=== PATIENT | male | born 1965 | race Caucasian/White ===

== ENCOUNTER 2021-11-02 14:12 | Inpatient (IN) | payer BC ==
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
[2021-11-02] MEDS ORDERED: HYDROmorphone 1 MG/ML 1 ML SYRINGE IVP STA ×2 (14:50→15:54)
[2021-11-02] MEDS ORDERED: ONDANSETRON 4 MG ODT STARTER PACK 2 TAB BTL PO STA (14:50)
[2021-11-02 15:02] LABS: Basophils # (A) 0.1 k/uL (0-0.2); Basophils % (A) 1 %; Eosinophils # (A) 0.1 k/uL (0-0.7); Eosinophils % (A) 1 %; HGB 15.1 gm/dL (13.0-17.5); Lymphocytes # (A) 0.8 k/uL (1.0-4.8); Lymphocytes % (A) 8 %; MCHC 34.3 g/dL (31.0-37.0); MCV 93.4 fL (80.0-100.0); Monocytes # (A) 0.4 k/uL (0-1.0); Monocytes % (A) 4 %; Neutrophils # (A) 9.4 k/uL (1.3-7.7); Neutrophils % (A) 87 %; Platelet Count 197 k/uL (150-450); RBC 4.72 m/uL (4.30-5.90); RDW 13.1 % (11.5-15.5); WBC 10.9 k/uL (3.8-10.6)
[2021-11-02 15:04] LABS: ALT 21 U/L (4-49); AST 36 U/L (17-59); African American GFR (CKD) 76 (>60 ml/min/1.73 sqM); Albumin 3.9 g/dL (3.5-5.0); Alcohol <10 mg/dL; Alkaline Phosphatase 71 U/L (38-126); Anion Gap 8 mmol/L; Blood Urea Nitrogen 12 mg/dL (9-20); Calcium 8.8 mg/dL (8.4-10.2); Carbon Dioxide 24 mmol/L (22-30); Chloride 105 mmol/L (98-107); Glucose 144 mg/dL (74-99); Non-African American GFR(CKD) 66 (>60 ml/min/1.73 sqM); Potassium 3.1 mmol/L (3.5-5.1); Sodium 137 mmol/L (137-145); Total Bilirubin 0.6 mg/dL (0.2-1.3); Total Protein 6.8 g/dL (6.3-8.2)
--- NOTE | 2021-11-02 15:05 | XR ---
EXAMINATION TYPE: XR chest 1V portable DATE OF EXAM: 11/02/2021 COMPARISON: NONE HISTORY: Trauma. Pain TECHNIQUE: FINDINGS: Heart and mediastinum are normal. Lungs are clear. Diaphragm is normal. Bony thorax appears normal. IMPRESSION: Normal chest.
--- NOTE | 2021-11-02 15:05 | XR ---
EXAMINATION TYPE: XR pelvis AP view DATE OF EXAM: 11/02/2021 COMPARISON: NONE HISTORY: Trauma. Pain TECHNIQUE: Single view FINDINGS: Pelvic ring is intact. Proximal femurs and hip joints are intact. Sacroiliac joints are int act. IMPRESSION: No fracture.
[2021-11-02 15:09] LABS: Partial Thromboplastin Time 23.5 sec (22.0-30.0); Prothrombin Time 10.8 sec (9.0-12.0)
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
[2021-11-02] MEDS ORDERED: LORazepam 2 MG/ML INJ IV PRN (16:41)
[2021-11-02] MEDS ORDERED: NALOXONE 0.4 MG/ML 1 ML VIAL IV PRN (16:41)
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
[2021-11-02] MEDS: HYDROmorphone 1 MG/ML 1 ML SYRINGE IVP PRN ×2 (18:28→21:21)
[2021-11-02] MEDS: ONDANSETRON 4 MG/2 ML VIAL IVP PRN (20:19)
[2021-11-02] MEDS: buPROPion SR 150 MG TABLET.ER PO SCH (22:05)
[2021-11-02] MEDS: lisinopriL 20 MG TAB PO SCH (22:06)
[2021-11-02] MEDS: SODIUM CHLORIDE 0.9% 1,000 ML IV SCH (22:06)
[2021-11-02] MEDS: SUCRALFATE 1 GM TAB PO PRN (22:25)
[2021-11-02] MEDS: traZODone HCL 100 MG TAB PO SCH (22:51)
[2021-11-03] MEDS: HYDROmorphone 1 MG/ML 1 ML SYRINGE IVP PRN ×4 (03:02→23:08)
[2021-11-03] MEDS ORDERED: HYDROmorphone 1 MG/ML 1 ML SYRINGE ONE (09:00)
[2021-11-03] MEDS ORDERED: lisinopriL 20 MG TAB ONE (09:00)
[2021-11-03] MEDS ORDERED: PANTOPRAZOLE 40 MG/10 ML VIAL ONE (09:00)
[2021-11-03] MEDS ORDERED: buPROPion SR 150 MG TABLET.ER PO ONE (09:00)
[2021-11-03] MEDS ORDERED: PANTOPRAZOLE 40 MG/10 ML VIAL IV SCH (09:00)
[2021-11-03] MEDS: SODIUM CHLORIDE 0.9% 1,000 ML IV SCH ×2 (12:31→19:53)
[2021-11-03] MEDS: PANTOPRAZOLE 40 MG/10 ML VIAL IVP SCH ×2 (12:32→21:24)
[2021-11-03] MEDS: buPROPion SR 150 MG TABLET.ER PO SCH ×2 (12:32→21:24)
[2021-11-03] MEDS: lisinopriL 20 MG TAB PO SCH ×2 (12:32→21:24)
[2021-11-03] MEDS: HYDROcodone/APAP 5-325MG 1 EACH TAB PO PRN (12:45)
[2021-11-03] MEDS ORDERED: HYDROcodone/APAP 5-325MG 1 EACH TAB ONE (12:45)
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
[2021-11-03 14:16] LABS: Appearance,Urine Clear (Clear); Bilirubin,Urine Negative (Negative); Blood,Urine Negative (Negative); Color,Urine Yellow; Glucose,Urine (UA) Negative (Negative); Ketones,Urine Negative (Negative); Leukocyte Esterase,Urine Negative (Negative); Mucus,Urine Moderate /hpf; Nitrite,Urine Negative (Negative); Protein,Urine 1+ (Negative); RBC,Urine <1 /hpf (0-5); Specific Gravity,Urine 1.037 (1.001-1.035); Squamous Epithelial Cell,Urine <1 /hpf (0-4); Urobilinogen,Urine <2.0 mg/dL (<2.0); WBC,Urine 7 /hpf (0-5)
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
[2021-11-03 15:50] LABS: Amphetamine Screen,Urine Not Detected (NotDetected); Barbiturate Screen,Urine Not Detected (NotDetected); Benzodiazepines Screen,Urine Not Detected (NotDetected); Cocaine Screen,Urine Not Detected (NotDetected); Methadone Screen, Urine Not Detected (NotDetected); Opiate Screen,Urine Detected (NotDetected); Oxycodone Screen, Urine Not Detected (NotDetected); Phencyclidine Screen,Urine Not Detected (NotDetected); Tricyclic Antidepressant,Urine Not Detected (NotDetected); Urn Cannabinoid Scrn Not Detected (NotDetected)
[2021-11-03] MEDS: traZODone HCL 100 MG TAB PO SCH (23:09)
[2021-11-04] MEDS: HYDROcodone/APAP 5-325MG 1 EACH TAB PO PRN ×5 (00:36→22:36)
[2021-11-04] MEDS: HYDROmorphone 1 MG/ML 1 ML SYRINGE IVP PRN ×6 (07:35→23:36)
[2021-11-04] MEDS: lisinopriL 20 MG TAB PO SCH ×2 (07:37→22:36)
[2021-11-04] MEDS: buPROPion SR 150 MG TABLET.ER PO SCH ×2 (07:37→22:36)
[2021-11-04] MEDS: PANTOPRAZOLE 40 MG/10 ML VIAL IVP SCH ×2 (07:37→20:31)
[2021-11-04] MEDS: SODIUM CHLORIDE 0.9% 1,000 ML IV SCH ×2 (07:39→23:41)
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
[2021-11-04] MEDS: traZODone HCL 100 MG TAB PO SCH (22:36)
[2021-11-05] MEDS ORDERED: TRANEXAMIC ACID IN NACL,ISO-OS 1,000 MG in SALINE 1 100ML.BAG IVPB PRN ×2 (05:00)
[2021-11-05] MEDS: HYDROcodone/APAP 5-325MG 1 EACH TAB PO PRN ×2 (07:17→13:08)
[2021-11-05] MEDS: buPROPion SR 150 MG TABLET.ER PO SCH ×2 (07:17→23:56)
[2021-11-05] MEDS: HYDROmorphone 1 MG/ML 1 ML SYRINGE IVP PRN ×4 (07:17→23:55)
[2021-11-05] MEDS: PANTOPRAZOLE 40 MG/10 ML VIAL IVP SCH ×2 (07:17→23:56)
[2021-11-05] MEDS: lisinopriL 20 MG TAB PO SCH ×2 (07:17→23:56)
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
[2021-11-05 09:46] LABS: African American GFR (CKD) >90 (>60 ml/min/1.73 sqM); Anion Gap 4 mmol/L; Blood Urea Nitrogen 8 mg/dL (9-20); Calcium 7.9 mg/dL (8.4-10.2); Carbon Dioxide 29 mmol/L (22-30); Chloride 107 mmol/L (98-107); Glucose 88 mg/dL (74-99); Non-African American GFR(CKD) >90 (>60 ml/min/1.73 sqM); Potassium 3.7 mmol/L (3.5-5.1); Sodium 140 mmol/L (137-145)
[2021-11-05] MEDS ORDERED: HYDROmorphone 0.5 MG/0.5 ML SYRINGE IVP ONE ×3 (10:20→22:20)
[2021-11-05] MEDS: SODIUM CHLORIDE 0.9% 1,000 ML IV SCH (10:57)
--- NOTE | 2021-11-05 14:36 | P.PN ---
Progress Note - Text Progress Note Date: 11/05/21 Spine Surgery Risk Review Cristiano Wall is a 56-year-old male presenting for evaluation of of your low back pain. It was my pleasure to have seen and examined Cristiano Wall. In our visit today we have had a chance to go over subjective complaints, physical examination findings and treatments including the natural course history without intervention and various interventional options. The patients imaging demonstrates L2 split fracture with displacement. On physical exam, Cristiano Wall demonstrates severe pain with ambulation or movement difficulty with motion secondary to pain as well as debility. I have explained to the patient that as their condition progresses it will cause further neurological deficits and eventual paralysis. Based on the patients imaging, physical exam, and the rapid progression and disabling nature of their symptoms, at this time I recommend surgery in the form or a: T12 to L4 stabilization. I discussed the risk and benefits of this procedure at length with Cristiano Wall. The patient agreed to considered pursuing the procedure abovementioned. Prior to surgery, she should follow up with her PCP (Cardio, ID, IM etc) for clearance. Questions were invited and answered, and the patient wishes to proceed as outlined below. Currently, I am recommendin. T12 to L4 stabilization for L2 fracture 2. Follow up with PCP for surgical clearance 3. Review of surgical risks and benefits as well as an educational packet on the proposed surgical procedure. Risks: All surgical procedures come with inherent risks, including those related to positioning, anesthesia, intraoperative findings, and postoperative complications. It is important to understand that surgery does not come with any guarantee of a successful outcome as complications and adverse events are a lways possible. The patient was given a handout in office today discussing the surgical procedure and risks associated with the intervention, both of which were discussed with the patient. These risks include but are not limited to the following: * Experiencing same, different or even worse symptoms in back, neck, arms, or legs compared to before surgery. * Requiring further surgery or other forms of treatment presently or at some time in the future at same or other levels of the intended spine surgery. * On an extreme but fortunately relatively rare basis severe complication such as blindness, stroke, heart attack, temporary and/or permanent nerve injury, paralysis, coma, or may occur, sometimes without known explanation. * Surgical complications may include but are not limited to risk of infection, fluid accumulation in the surgical dissection site, including a seroma or hematoma, that requires additional surgery, wound drainage, bleeding, new numbness or weakness, vision changes/loss, spinal fluid leakage, non-healing and/or infected incision, headaches, difficulty or inability to swallow, hoarseness, hemopneumothorax, pneumothorax, impotence, retrograde ejaculation, vaginal dryness; injury to nerves, spinal cord, blood vessels, lymphatics or other vital organs (i.e., bowel injury, injury to the great vessels); heterotopic bone formation; complications related to the hardware such as screws, rods, cages including misplaced hardware, device failure, instrumentation at the wrong spine level, hardware fracture/breakage, or hardware loosening; vertebral failure of the spinal column above or below the newly placed hardware; retained surgical instrumentations or devices and the need for further surgery. * Medical risks of the planned spine surgery include but are not limited to generalized Infections to the whole body or local areas outside of the surgical site (sepsis), heart attack, bleeding, anaphylaxis, meningitis, seizure, epilepsy, hearing loss, burn del real, laceration of the head or other areas of the body, bruising, hypersensitivity of the skin, bladder over distension; allergic reaction; shoulder injury related to positioning; fat, blood and air clots to other areas of the body like heart, lungs, brain; failure of internal organs such as lungs, kidneys, liver and excessive bleeding. If blood transfusions are necessary, note that transfusions may cause intolerance reactions such as anaphylaxis or other complex reactions. * Despite best efforts, the results of spine surgery might not heal in terms of bone, soft tissues such as skin, fascia, ligaments, and joints. Additionally, in order to achieve best possible results, spine surgery may be carried out beyond the initially planned levels and involve decompression, fusion including insertion of hardware at levels other than the original intended area of surgical interest change some portions of the procedure in order to ensure the best possible outcomes. * With spine surgery and spinal fusion, there are different off label uses of instrumentation (devices, implants and hardware) as well as biological substances (bone morphogenic proteins, demineralized bone matrix) as well as using extra bone from allograft sources (i.e. cadaver bone) or autograft (iliac crest bone, ribs, or the spine itself). The patient has been given information about these practices and their inherent risks and benefits. The patient has had a chance to review all the listed information, has been given print outs detailing this information, and has had all his/her questions answered to their satisfaction. It was my pleasure to have seen and examined Cristiano Wall. In our visit today we have had a chance to go over my understanding of our patient's current condition, the natural course history without intervention and various interventional options. Questions were invited and answered, and the patient wishes to proceed as outlined above. I have seen and examined the patient for 25 minutes and we have spent more than 50% of the time in repeat and detailed counseling about the patient's condition, its natural course history with out and as much as can be predicted with surgery and re-review of various surgical treatment options. In conclusion, Cristiano Wall and requested we proceed with the above suggested surgery and are willing to accept risks and limitations of the suggested surgery as nature of the disease process and our best attempts at treatment for the condition. Thank you again for allowing us to be part of your patient's care. Please don't hesitate to contact me if you have any further questions. Signed and authenticated by: Ulisses Santacruz [facility] [address] [address]
[2021-11-05] MEDS ORDERED: LACTATED RINGERS 1,000 ML IV ONE ×3 (17:20→21:20)
[2021-11-05] MEDS ORDERED: SUCCINYLCHOLINE CHLORIDE 100 MG/5 ML SYR IV ONE (18:56)
[2021-11-05] MEDS ORDERED: GLYCOPYRROLATE 0.2 MG/ML 2 ML VIAL ONE (18:56)
[2021-11-05] MEDS ORDERED: ROCURONIUM 10 MG/ML (5 ML VIAL) IV ONE (18:56)
[2021-11-05] MEDS ORDERED: ONDANSETRON 4 MG/2 ML VIAL ONE (18:56)
[2021-11-05] MEDS ORDERED: LIDOCAINE 2% INJ 20 MG/ML (2 ML VIAL) ONE (18:56)
[2021-11-05] MEDS ORDERED: fentaNYL (PF) 50 MCG/ML 2 ML AMP ONE (18:56)
[2021-11-05] MEDS ORDERED: DEXAMETHASONE SOD PHOSPHATE 10 MG/ML 1 ML VIAL ONE (18:56)
[2021-11-05] MEDS ORDERED: MIDAZOLAM 2 MG/2 ML VIAL ONE (18:56)
[2021-11-05] MEDS ORDERED: NEOSTIGMINE 1 MG/ML 10 ML VIAL ONE (18:56)
[2021-11-05] MEDS ORDERED: TRANEXAMIC ACID IN NACL,ISO-OS 1,000 MG/100 ML BAG ONE (18:56)
[2021-11-05] MEDS ORDERED: HYDROmorphone (PF) 1 MG/ML ONE (18:56)
[2021-11-05] MEDS ORDERED: PROPOFOL 10 MG/ML 20 ML VIAL IV ONE (18:56)
[2021-11-05] MEDS ORDERED: TRANEXAMIC ACID IN NACL,ISO-OS 1,000 MG in SALINE 1 100ML.BAG IVPB ONE (19:51)
[2021-11-05] MEDS ORDERED: MAGNESIUM HYDROXIDE 2,400 MG/10 ML CUP PO PRN (21:39)
[2021-11-05] MEDS ORDERED: MAG HYDROX/AL HYDROX/SIMETH 30 ML CUP PO PRN (21:39)
[2021-11-05] MEDS ORDERED: NA PHOS,M-B/NA PHOS,DI-BA 133 ML ENEMA RECTAL PRN (21:39)
[2021-11-05] MEDS ORDERED: HYDROcodone/APAP 10-325MG 1 EACH TAB PO PRN (21:39)
[2021-11-05] MEDS ORDERED: bisacodyL 10 MG SUPP RECTAL PRN (22:00)
[2021-11-05] MEDS ORDERED: SENNOSIDES-DOCUSATE SODIUM 1 EACH TAB PO PRN (22:00)
[2021-11-05] MEDS: traZODone HCL 100 MG TAB PO SCH (23:21)
[2021-11-06] MEDS: CYCLOBENZAPRINE 10 MG TAB PO PRN ×2 (00:21→08:16)
[2021-11-06] MEDS: SODIUM CHLORIDE 0.9% 1,000 ML IV SCH ×2 (02:10→18:09)
[2021-11-06] MEDS: HYDROmorphone 1 MG/ML 1 ML SYRINGE IVP PRN ×4 (04:54→23:40)
--- NOTE | 2021-11-06 06:19 | FL ---
EXAMINATION TYPE: FL guidance operating room, XR lumbar spine 2 or 3V DATE OF EXAM: 11/05/2021 CLINICAL HISTORY: L2 fracture. TECHNIQUE: Fluoroscopy. Intraoperative 2 views lumbar spine. COMPARISON: MRI lumbar spine November 04, 2021. CT chest abdomen and pelvis November 02, 2021.. FINDINGS: Fluoroscopic guidance was provided during T12-L4 fusion procedure performed by Dr. Goodman brown. A total of 1.22 minutes of fluoroscopic time was utilized during the procedure and 6 spot image s was acquired. Images obtained are not sent to PACS for official interpretation. IMPRESSION: As Above.
[2021-11-06] MEDS ORDERED: LIDOCAINE 1% (10MG/ML) FOR IV START INTRADERMA PRN (07:06)
[2021-11-06] MEDS ORDERED: HYDROcodone/APAP 7.5-325MG 1 EACH TAB PO PRN (07:06)
[2021-11-06] MEDS ORDERED: ONDANSETRON 4 MG/2 ML VIAL IVP ONE (07:06)
[2021-11-06] MEDS ORDERED: DEXAMETHASONE SOD PHOSPHATE 4 MG/ML 1 ML VIAL IV ONE (07:06)
[2021-11-06] MEDS ORDERED: HYDROmorphone 0.5 MG/0.5 ML SYRINGE IVP PRN (07:06)
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
[2021-11-06] MEDS: buPROPion SR 150 MG TABLET.ER PO SCH ×2 (09:10→21:14)
[2021-11-06] MEDS: oxyCODONE-APAP 7.5-325MG 1 EACH TAB PO PRN ×3 (09:10→21:14)
[2021-11-06] MEDS: lisinopriL 20 MG TAB PO SCH ×2 (09:10→21:14)
[2021-11-06] MEDS: PANTOPRAZOLE 40 MG/10 ML VIAL IVP SCH ×2 (09:15→21:14)
[2021-11-06] MEDS: LACTATED RINGERS 1,000 ML IV SCH (09:15)
[2021-11-06 10:07] LABS: African American GFR (CKD) >90 (>60 ml/min/1.73 sqM); Anion Gap 6 mmol/L; Blood Urea Nitrogen 8 mg/dL (9-20); Carbon Dioxide 23 mmol/L (22-30); Chloride 107 mmol/L (98-107); Glucose 146 mg/dL (74-99); Non-African American GFR(CKD) >90 (>60 ml/min/1.73 sqM); Sodium 136 mmol/L (137-145)
[2021-11-06 10:10] LABS: Potassium 4.1 mmol/L (3.5-5.1)
[2021-11-06 10:14] LABS: Basophils % (A) 0 %; Eosinophils % (A) 0 %; HCT 39.1 % (39.0-53.0); HGB 13.2 gm/dL (13.0-17.5); Lymphocytes # (A) 0.6 k/uL (1.0-4.8); Lymphocytes % (A) 9 %; MCH 32.8 pg (25.0-35.0); MCHC 33.7 g/dL (31.0-37.0); MCV 97.5 fL (80.0-100.0); Mean Platelet Volume 7.8; Monocytes # (A) 0.3 k/uL (0-1.0); Monocytes % (A) 5 %; Neutrophils # (A) 5.3 k/uL (1.3-7.7); Neutrophils % (A) 84 %; Platelet Count 184 k/uL (150-450); RBC 4.01 m/uL (4.30-5.90); RDW 12.9 % (11.5-15.5); WBC 6.3 k/uL (3.8-10.6)
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
[2021-11-06] MEDS: HYDROmorphone 0.5 MG/0.5 ML SYRINGE IVP PRN ×2 (12:45→16:04)
[2021-11-06] MEDS: traZODone HCL 100 MG TAB PO SCH (23:40)
[2021-11-07] MEDS: SODIUM CHLORIDE 0.9% 1,000 ML IV SCH ×2 (04:37→18:07)
[2021-11-07] MEDS: HYDROmorphone 1 MG/ML 1 ML SYRINGE IVP PRN ×4 (05:50→23:26)
[2021-11-07] MEDS: buPROPion SR 150 MG TABLET.ER PO SCH ×2 (07:53→19:51)
[2021-11-07] MEDS: lisinopriL 20 MG TAB PO SCH ×2 (07:53→19:48)
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
[2021-11-07] MEDS: HYDROmorphone 0.5 MG/0.5 ML SYRINGE IVP PRN (09:53)
[2021-11-07] MEDS: oxyCODONE-APAP 7.5-325MG 1 EACH TAB PO PRN ×3 (11:04→19:47)
[2021-11-07] MEDS: LACTATED RINGERS 1,000 ML IV SCH (12:40)
[2021-11-07] MEDS: PANTOPRAZOLE 40 MG/10 ML VIAL IVP SCH ×2 (12:43→19:48)
[2021-11-07 13:46] VITALS: BMI 28.8
[2021-11-07] MEDS: CYCLOBENZAPRINE 10 MG TAB PO PRN (16:12)
[2021-11-07] MEDS: traZODone HCL 100 MG TAB PO SCH (23:27)
[2021-11-08] MEDS: oxyCODONE-APAP 7.5-325MG 1 EACH TAB PO PRN ×5 (00:33→19:21)
[2021-11-08] MEDS: SODIUM CHLORIDE 0.9% 1,000 ML IV SCH (03:17)
[2021-11-08] MEDS: HYDROmorphone 0.5 MG/0.5 ML SYRINGE IVP PRN ×2 (04:39→16:38)
[2021-11-08] MEDS: CYCLOBENZAPRINE 10 MG TAB PO PRN ×3 (05:58→21:46)
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
[2021-11-08] MEDS: ONDANSETRON 4 MG/2 ML VIAL IVP PRN (09:26)
[2021-11-08] MEDS: lisinopriL 20 MG TAB PO SCH ×2 (09:28→21:47)
[2021-11-08] MEDS: buPROPion SR 150 MG TABLET.ER PO SCH ×2 (09:28→21:46)
[2021-11-08] MEDS: PANTOPRAZOLE 40 MG/10 ML VIAL IVP SCH ×2 (09:28→21:47)
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
[2021-11-08] MEDS: HYDROmorphone 1 MG/ML 1 ML SYRINGE IVP PRN (11:37)
[2021-11-08] MEDS: LACTATED RINGERS 1,000 ML IV SCH (13:03)
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
[2021-11-08] MEDS: traZODone HCL 100 MG TAB PO SCH (21:47)
[2021-11-09] MEDS: SODIUM CHLORIDE 0.9% 1,000 ML IV SCH ×3 (00:28→22:02)
[2021-11-09] MEDS: HYDROmorphone 0.5 MG/0.5 ML SYRINGE IVP PRN ×3 (01:45→18:36)
[2021-11-09] MEDS: ACETAMINOPHEN TAB 325 MG TAB PO PRN (01:46)
[2021-11-09] MEDS: SUCRALFATE 1 GM TAB PO PRN (01:50)
[2021-11-09] MEDS: oxyCODONE-APAP 7.5-325MG 1 EACH TAB PO PRN ×4 (08:16→22:02)
[2021-11-09] MEDS: PANTOPRAZOLE 40 MG/10 ML VIAL IVP SCH ×2 (08:16→22:02)
[2021-11-09] MEDS: lisinopriL 20 MG TAB PO SCH ×2 (08:17→22:01)
[2021-11-09] MEDS: CYCLOBENZAPRINE 10 MG TAB PO PRN ×2 (08:17→16:38)
[2021-11-09] MEDS: LACTATED RINGERS 1,000 ML IV SCH (08:25)
[2021-11-09] MEDS: buPROPion SR 150 MG TABLET.ER PO SCH ×2 (09:40→22:02)
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
[2021-11-09] MEDS: traZODone HCL 100 MG TAB PO SCH (22:01)
[2021-11-10] MEDS: CYCLOBENZAPRINE 10 MG TAB PO PRN ×2 (00:19→07:16)
[2021-11-10] MEDS: HYDROmorphone 0.5 MG/0.5 ML SYRINGE IVP PRN (07:16)
[2021-11-10 07:27] VITALS: BP 165/99; PULSE 67; RESP 17; TEMP 97.9
[2021-11-10] MEDS: lisinopriL 20 MG TAB PO SCH (07:53)
[2021-11-10] MEDS: buPROPion SR 150 MG TABLET.ER PO SCH (07:53)
[2021-11-10] MEDS: PANTOPRAZOLE 40 MG/10 ML VIAL IVP SCH (07:54)
[2021-11-10] MEDS: ACETAMINOPHEN TAB 325 MG TAB PO PRN (07:56)
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
--- NOTE | 2021-11-10 08:10 | P.DS ---
Providers Date of admission: 11/02/21 16:41 Expected date of discharge: 11/10/21 Attending physician: Ulisses Corona DO Consults: 11/02/21 16:43 Consult Physician Routine Consulting Provider: Андрей Lizama Reason/Comments: Medical management Do you want consulting provider notified?: Yes Primary care physician: Jah Davidson Hospital Course: Hospital Course: The patient was evaluated preoperatively and found to have the diagnosis of L2 fracture. They underwent appropriate preoperative care and were willing to undergo the intended procedure. They underwent a successful T12 to L4 MIS stabilization, were recovered appropriately and sent to the floor. While on the floor they worked with physical therapy, occupational therapy and nursing to enhance their recovery experience. Their pain was well controlled through their stay and they were started on appropriate medications, DVT ppx modalities, activity and dietary needs. Daily labs were monitored closely, and transfusions were only used when necessary. Medicine as well as other consulting services have made their input and have helped with our team approach and multidisciplinary care. PT milestones have been met and passed and they have made the recommendation of home with home care for this patient and treating providers agree with this care path. The patient will be discharged home with appropriate medications, instructions and follow-up information and in stable condition. Patient Condition at Discharge: Good Plan - Discharge Summary Discharge Rx Participant: No New Discharge Prescriptions: New oxyCODONE HCL/ACETAMINOPHEN [Percocet 7.5-325 mg] 1 tab PO Q4HR PRN #56 tab PRN Reason: Pain cefaDROXiL [Duricef] 500 mg PO Q12HR 5 Days #10 cap Cyclobenzaprine [Flexeril] 5 mg PO TID #90 tablet No Action traZODone HCL 300 mg PO HS buPROPion SR [Wellbutrin SR] 150 mg PO BID Quinapril HCl [Accupril] 20 mg PO BID Discharge Medication List Quinapril HCl [Accupril] 20 mg PO BID 11/02/21 [History] buPROPion SR [Wellbutrin SR] 150 mg PO BID 11/02/21 [History] traZODone HCL 300 mg PO HS 11/02/21 [History] Cyclobenzaprine [Flexeril] 5 mg PO TID #90 tablet 11/10/21 [Rx] cefaDROXiL [Duricef] 500 mg PO Q12HR 5 Days #10 cap 05/02/22 [Rx] oxyCODONE HCL/ACETAMINOPHEN [Percocet 7.5-325 mg] 1 tab PO Q4HR PRN #56 tab 11/10/21 [Rx] Follow up Appointment(s)/Referral(s): Jah Davidson MD [Primary Care Provider] - As Needed [facility], [NON-STAFF] - As Needed Ulisses Corona DO [Doctor of Osteopathic Medicine] - 2 Weeks Activity/Diet/Wound Care/Special Instructions: Spine Discharge and Recovery Instructions Date of Surgery: 11/05/2021 Diagnosis: L2 fracture Procedure: T12 to L4 MIS stabilization Medications: See medication list All medication refills should be obtained through your primary care doctor or your clinic spine surgeon. Please discuss prescription refills at your follow up appointment. Do not call the hospital for medication refills. Dressing: Leave your dressing in place for a total of 5 days post operatively. Then you may remove your dressing and leave open to air. Keep the area clean and if not able to keep area clean, then cover with sterile gauze and tape. Showering: You may shower 3 days after your procedure allowing soap and water to run over incision. Do not scrub. Do not soak. Blot dry. Follow up: Please confirm a follow up appointment with your surgeon 3 weeks post operatively. Please make an appointment to follow up with your PCP in 1-2 weeks after surgery for evaluation 3 phase, 3-week plan POST OP WEEKS 1-3 1. Lifting/carrying/pushing/pulling limited to less than 5 pounds. 2. Do not sit for longer than 15 minutes at one time. Get up and walk around. Prolonged sitting is NOT advised. If you lay down, see if you can tolerate laying down on you front (belly side) 3. Walk for periods of 15 minutes = 1 mile but no longer; do it multiple times times each day. 4. Ice your low back after activity. POST OP WEEKS 3-6 1. Lifting limited to less than 20 pounds. 2. Do not sit for longer than 30 minutes at a time. Frequently change positions. Use a sit-to stand workstation or take frequent breaks from sitting if you have returned to work. 3. Walk for 30 minutes each day. If possible, do these three or more times a day POST OP WEEKS 6+ At your 6-week appointment we will give you a physical therapy referral to focus on a core stabilization and strengthening program. You should also work on leg & buttock strengthening, hamstring & quadriceps stretching, and continue a low impact aerobic activity program such as swimming, walking, or riding a stationary bicycle. During the initial 6 weeks after your surgery, you are at the highest risk of re-injuring your spine. You should generally avoid BLTs (bending, lifting and twisting combination motions) and follow the above guidelines to reduce the chance of reinjury. You can anticipate post op appointments in our office at approximately 3 weeks and 6 weeks after your surgery. INCISION CARE: If your incision is not draining you do NOT need to cover it with a dressing. Keep your incision clean, dry and intact. In most cases, we apply skin glue, kalpana or sutures to the incision at the time of surgery. This will be like a crust or have the appearance of a scab and will fall off in time on its own. The stitches or kalpana need to be removed at 3 weeks post op appointment. You may begin to shower 3 days after surgery (this allows the glue to león well). However, please avoid scrubbing the incision site or peeling off any of the skin glue. This will ensure optimal healing of your incision. Also, during this time avoid soaking the incision area in water - this includes swimming pools, hot tubs or baths. No ointments, lotions or oils on the incision until your surgeon allows. Leave kalpana, sutures or glue in place. Neurological dysfunction that comes on suddenly can also be a sign of a stroke. Below some common symptoms of a stroke are listed: B - balance difficulty such as sudden onset walking or leaning to one side - NEW E - eye problem such as sudden double vision or trouble seeing on one side - NEW F - Facial weakness or numbness on one side - NEW A - Arm or leg weakness or numbness on one side - NEW S - Slurred speech or difficulty with word finding - NEW T - Time is BRAIN! Call 911 as soon as you recognize these symptoms Diet: Consume a regular diet rich in vegetables and lean protein such as chicken or fish. You should consume in a ratio of approximately 20% fats|40% carbohydrates|40%protein. Vegetables, sweet potatoes, brown rice or quinoa are examples of good carbohydrates. Chips, white bread, cookies and sweets/sugar are examples of bad carbohydrates. Limit your bad carbs, go wild with good carbs. "Life's Simple 7" Guidelines as per [place] [employer] These will help you reclaim your life after surgery and mortician helper in your recovery, keeping in mind your restrictions. (1) Get Active. Physical activity can help people lose weight, control high blood pressure and cholesterol, feel emotionally better, and sleep better. (2) Control Cholesterol. Avoid a diet high in saturated fat, trans fat, & cholesterol. Limit whole milk & cream, ice cream, butter, egg yolks, processed meats (like sausage and hot dogs), and fatty meats. Choose healthy foods that are low in saturated fat, trans fat and cholesterol which include: Fruits and vegetables, fiber rich grain products (like whole grain pasta and brown rice), lean meat such as chicken, fish, nuts, seeds, and legumes. (3) Eat Better. Eat small portions. Shop at the grocery with a list and do not stray from it. Tips for a healthy diet include: Limit sodium intake to less than 1500mg daily, avoid prepackaged, processed, and fast foods, choose a diet rich in fruits, vegetables, and whole grain, high fiber foods, and limit saturated & cholesterol in your diet. (4) Manage Blood Pressure. If you have high blood pressure, you should have a cuff at home so that you can check your blood pressure regularly. Be sure you have a good cuff. An arm one is generally better than a wrist one. Bring the cuff to a doctor's appointment to validate that the measurements that your cuff are taking are accurate. Take your blood pressure twice daily when you are sitting down and relaxing. Record the numbers in a log and bring this log with you to your doctors' appointments. (5) Lose Weight if your BMI is above 25. A healthy BMI is between 19-25. To calculate Your BMI, you may use a Standard BMI Calculator on the NIH BMI website: <www.nhlbi.nih.gov/guidelines/obesity/BMI/bmicalc.htm>. Weigh oneself daily. If you are overweight, set a goal to lose weight. A pound a week loss if needed is a good target. (6) Reduce Blood Sugar. Limit foods and liquids with "added sugars." (Added sugars include sucrose, fructose, glucose, maltose, dextrose, high fructose corn syrup, corn syrup, concentrated fruit juice and honey). (7) Stop Smoking. If you smoke, quitting smoking is one of the best things that you can do for your health. Smoking increases your risk of heart attack, stroke, and peripheral vascular disease, which is a build-up of plaque in your arteries. Please discard all the cigarettes and lighters in your house. Have a plan for what you will do when you have the urge to smoke. Direct and second- hand smoke shortens your life as well as the lives of your family, friends and others around you. For your health and the health of those around you, please consider quitting! Proper Bending Body Mechanics: Maintain a wide stance with one foot slightly in front of the other. Keep your back straight. Bend utilizing the strength in your hips and knees. Do not bend at the waist. Maintain the lifted object at your waist-level close to your body. Avoid lifting weight that causes immediately pain or pain anywhere in the body afterwards. Smoking/Nicotine If there was ever one thing that you could do to increase your overall health, decrease your risk of cardiovascular problems by about 39% the second you make the choice, it is to STOP SMOKING. Your body's most instant gratification is the second you stop smoking. We have all heard the studies, read the articles but it is true, smoking is extremely bad for your overall health, and moreover it is detrimental to your bone health. Nicotine, IN ANY FORM, kills bone cells, prevents your body from healing fractures, and significantly prolongs healing after surgery. In spine surgery specifically, it increases your risk of not healing your bones to create a fusion and increases your risk of having a revision surgery due to this up to 60%. I know it is hard. I know it feels impossible. But there are ways. Take control of your life. We are here to help you through it. And when you are ready, ask us and we can direct you to help if you desire. Use the START Plan to Quit Smoking (please visit the Helpguide.org website listed below for more information): S = Set a quit date. Choose a date within the next 2 weeks, so you have enough time to prepare without losing your motivation to quit. If you mainly smoke at work, quit on the weekend, so you have a few days to adjust to the change. T = Tell family, friends, and co-workers that you plan to quit. Let your friends and family in on your plan to quit smoking and tell them you need their support and encouragement to stop. Look for a quit alan who wants to stop smoking as well. You can help each other get through the rough times. A = Anticipate and plan for the challenges you'll face while quitting. Most people who begin smoking again do so within the first 3 months. You can help yourself make it through by preparing ahead for common challenges, such as nicotine withdrawal and cigarette cravings. R = Remove cigarettes and other tobacco products from your home, car, and work. Throw away all your cigarettes (no emergency pack!), lighters, ashtrays, and matches. Wash your clothes and freshen up anything that smells like smoke. Shampoo your car, clean your drapes and carpet, and steam your furniture. T = Talk to your doctor about getting help to quit. Your doctor can prescribe medication to help with withdrawal and suggest other alternatives. If you can't see a doctor, you can get many products over the counter at your local pharmacy or grocery store, including the nicotine patch, nicotine lozenges, and nicotine gum. Resources for Quitting Smoking: <https://www.[place].gov/documents/[facility]/Quit_Tobacco_Resources_for_patients_313 480_7.pdf> Supplementation: Take recommended dosages of Vitamin D and Calcium to help fortify your bones and help them to heal. See your health maintenance packet for dosages and recommended levels. DVT/VTE prophylaxis: You will be given compression stockings from the hospital. Wear these daily for the first two weeks after surgery. You may take them off at night. You may be prescribed a medication to help thin your blood. Take this as directed. If you are not prescribed this medication, early and frequent ambulation has been shown to be the best prophylaxis to deep vein thrombosis and sequelae related to this event. Discharge Disposition: HOME WITH HOME HEALTH SERVICES
[2021-11-10] MEDS: LACTATED RINGERS 1,000 ML IV SCH (09:31)
[2021-11-10] MEDS: oxyCODONE-APAP 7.5-325MG 1 EACH TAB PO PRN (12:49)
== END 2021-11-10 16:53 | disposition home health service (06) | DRG 519 ==
LOC: EC 14:12 → 5NMEDONC 16:41 → 4SSUR 19:50
PROVIDERS: ADMIT Orthopaedic Surgery; ATTEND Orthopaedic Surgery
PROC: 0QS004Z Reposition Lumbar Vertebra with Internal Fixation Device, Open Approach (ICD-10-PCS; principal; 2021-11-05 07:30)
PROC: 4A1104G Monitoring of Peripheral Nervous Electrical Activity, Intraoperative, Open Approach (ICD-10-PCS; principal; 2021-11-05 07:30)
PROC: 3E0V0GB Introduction of Recombinant Bone Morphogenetic Protein into Bones, Open Approach (ICD-10-PCS; principal; 2021-11-05 07:30)
DX: S32.021A Stable burst fracture of second lumbar vertebra, initial encounter for closed fracture (principal); K51.90 Ulcerative colitis, unspecified, without complications; Q21.1 Atrial septal defect; Z93.2 Ileostomy status; S30.0XXA Contusion of lower back and pelvis, initial encounter; G89.11 Acute pain due to trauma; I10 Essential (primary) hypertension; F41.9 Anxiety disorder, unspecified; Z79.899 Other long term (current) drug therapy; Z86.73 Personal history of transient ischemic attack (TIA), and cerebral infarction without residual deficits; Z90.49 Acquired absence of other specified parts of digestive tract; V86.56XA Driver of dirt bike or motor/cross bike injured in nontraffic accident, initial encounter; Y92.838 Other recreation area as the place of occurrence of the external cause
CPT/HCPCS: 36415; 70450; 71045; 71260; 72100; 72125; 72131; 72148; 72170; 74177; 80048; 80053; 80306; 80320; 81001; 84484; 85025; 85610; 85730; 86850; 86870; 86880; 86900; 86901; 86902; 93005; 96374; 96376; 99291

== ENCOUNTER 2022-02-12 07:41 | Inpatient (IN) | payer BC ==
[2022-02-10 13:58] VITALS: BMI 27.3
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
[~2022-02-12 07:41] MED LIST: Pre Op ABX Message 1 EACH MISC MISCELLANE ONE; VANCOMYCIN 1,250 MG in SODIUM CHLORIDE 0.9% 250 ML IVPB PRN
[2022-02-12] MEDS ORDERED: ONDANSETRON 4 MG/2 ML VIAL ONE (08:08)
[2022-02-12] MEDS ORDERED: VANCOMYCIN IV PER PHARMACY 1 EACH MISC MISCELLANE SCH (08:15)
--- NOTE | 2022-02-12 08:24 | P.PN ---
Progress Note - Text Progress Note Date: 02/12/22 History and Physical UPDATE I have seen and examined the patient and reviewed the history and physical. There appear to be no significant changes in the patient's current medical status as outlined in the current History and Physical. We discussed staying in hospital for IVABX vs going home. Pt would like to go home. We will discuss after procedure as well.
[2022-02-12] MEDS ORDERED: ONDANSETRON 4 MG/2 ML VIAL IVP ONE (08:28)
[2022-02-12] MEDS ORDERED: DEXAMETHASONE SOD PHOSPHATE 4 MG/ML 1 ML VIAL IVP ONE (08:28)
[2022-02-12] MEDS ORDERED: LACTATED RINGERS 1,000 ML IV ONE (08:28)
[2022-02-12] MEDS ORDERED: MIDAZOLAM 2 MG/2 ML VIAL IVP ONE (08:32)
[2022-02-12 08:43] LABS: Basophils # (A) 0.1 k/uL (0-0.2); Basophils % (A) 1 %; Eosinophils # (A) 0.3 k/uL (0-0.7); Eosinophils % (A) 4 %; HCT 42.1 % (39.0-53.0); HGB 13.7 gm/dL (13.0-17.5); Lymphocytes # (A) 1.4 k/uL (1.0-4.8); Lymphocytes % (A) 17 %; MCH 29.2 pg (25.0-35.0); MCHC 32.5 g/dL (31.0-37.0); MCV 89.8 fL (80.0-100.0); Mean Platelet Volume 7.5; Monocytes # (A) 0.4 k/uL (0-1.0); Monocytes % (A) 5 %; Neutrophils # (A) 5.9 k/uL (1.3-7.7); Neutrophils % (A) 73 %; Platelet Count 326 k/uL (150-450); RBC 4.68 m/uL (4.30-5.90); WBC 8.1 k/uL (3.8-10.6)
[2022-02-12] MEDS ORDERED: NEOSTIGMINE 1 MG/ML 10 ML VIAL ONE (08:50)
[2022-02-12] MEDS ORDERED: ROCURONIUM 10 MG/ML (5 ML VIAL) IV ONE (08:50)
[2022-02-12] MEDS ORDERED: KETOROLAC 15 MG/ML 1 ML VIAL ONE (08:50)
[2022-02-12] MEDS ORDERED: GLYCOPYRROLATE 0.2 MG/ML 2 ML VIAL ONE (08:50)
[2022-02-12] MEDS ORDERED: fentaNYL (PF) 50 MCG/ML 2 ML AMP ONE (08:50)
[2022-02-12] MEDS ORDERED: MIDAZOLAM 2 MG/2 ML VIAL ONE (08:50)
[2022-02-12] MEDS ORDERED: SUCCINYLCHOLINE CHLORIDE 200 MG/10 ML VIAL IV ONE (08:50)
[2022-02-12] MEDS ORDERED: HYDROmorphone (PF) 1 MG/ML ONE (08:50)
[2022-02-12] MEDS ORDERED: PROPOFOL 10 MG/ML 20 ML VIAL IV ONE (08:50)
[2022-02-12] MEDS ORDERED: LIDOCAINE 2% INJ 20 MG/ML (2 ML VIAL) ONE (08:50)
[2022-02-12 08:58] LABS: African American GFR (CKD) >90 (>60 ml/min/1.73 sqM); Anion Gap 7 mmol/L; Blood Urea Nitrogen 15 mg/dL (9-20); C Reactive Protein 4.4 mg/dL (<1.0); Calcium 9.4 mg/dL (8.4-10.2); Carbon Dioxide 28 mmol/L (22-30); Chloride 105 mmol/L (98-107); Glucose 98 mg/dL (74-99); Non-African American GFR(CKD) >90 (>60 ml/min/1.73 sqM); Potassium 3.9 mmol/L (3.5-5.1); Sodium 140 mmol/L (137-145)
[2022-02-12] MEDS ORDERED: ceFAZolin 3,000 MG in SODIUM CHLORIDE 0.9% IRRIGATIO 3,000 ML IRRIGATION ONE (09:22)
[2022-02-12] MEDS ORDERED: BUPIVACAINE (PF) 0.25% 30 ML VIAL SQ ONE (09:50)
[2022-02-12] MEDS ORDERED: VANCOMYCIN 1,000 MG VIAL MISCELLANE ONE (09:50)
[2022-02-12] MEDS ORDERED: SENNOSIDES-DOCUSATE SODIUM 1 EACH TAB PO PRN (10:08)
[2022-02-12] MEDS ORDERED: VANCOMYCIN IV PER PHARMACY 1 EACH MISC MISCELLANE PRN (10:12)
[2022-02-12 11:03] LABS: Erythrocyte Sedimentation Rate 46 mm/hr (0-15)
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
--- NOTE | 2022-02-12 11:08 | P.PN ---
Progress Note - Text Progress Note Date: 02/12/22 Post op Pt s/e in PACU. Comfortable. Nursing at bedside. No issues. VSS. Will go to floor when stable per anesthesia.
[2022-02-12] MEDS: ACETAMINOPHEN TAB 500 MG TAB PO SCH ×2 (12:11→17:39)
[2022-02-12] MEDS: 0.9% NACL WITH KCL 20 MEQ/L 1,000 ML IV SCH (12:13)
[2022-02-12 12:47] LABS: Prothrombin Time 10.5 sec (9.0-12.0)
[2022-02-12] MEDS: diazePAM 5 MG TAB PO PRN (14:03)
--- NOTE | 2022-02-12 14:28 | P.CONS ---
History of Present Illness - Reason for Consult Consult date: 02/12/22 Medical Management Requesting physician: Ulisses Corona - History of Present Illness History of Presenting Illness: Patient is a very pleasant 56-year-old male with a past medical history of hypertension, CVA, PFO no longer on anticoagulation reporting he took himself off of anticoagulation when he developed complications with his ulcerative colitis and never followed back up with cardiology for PFO closure or resumption of anticoagulant as this was in [place], ulcerative colitis with ileostomy, anxiety, and spinal stenosis status post T12 through L4 decompression and f usion.. Patient is currently admitted under orthospine surgical team status post incision and drainage of superficial back incisional abscess. We have been consulted for continued medical management throughout patient's hospitalization. Labs reviewed. CBC and BMP were unremarkable. ESR elevated at 46 and CRP of 4.4. Patient seen and fully evaluated at bedside. Patient resting comfortably and reports pain is currently managed with current pain medication regimen. Patient denies having any numbness/tingling/weakness in his extremities. He is tolerating oral intake and denies having any postoperative nausea or vomiting. Vital signs are unremarkable. Dressing in place to lumbar spine clean, dry, and intact with no signs of bleeding or drainage noted through dressing. Patient reports he has not yet urinated during postoperative period, but states he will try shortly as he does not have the urge to go at this time. Patient denies having any headache, lightheadedness, dizziness, chest pain, palpitations, shortness of breath, Review of systems: Pertinent positives and negatives as discussed in HPI, a complete review of systems was performed and all other systems are negative. Physical exam: Vital signs reviewed and stable. General: Nontoxic, no distress and appears stated age. Derm: Skin warm and dry, normal coloration for ethnicity. Dressing to lumbar region of the back is clean, dry, and intact with no signs of bleeding or drainage. Head: Atraumatic, normocephalic and symmetric. Eyes: EOMs intact, no lid lag, and anicteric sclera Mouth: no lip lesions, mucus membranes moist Cardiovascular: regular rate and rhythm with normal S1S2, systolic murmur, positive posterior tibial pulses bilaterally, and cap refill < 2 seconds. Lungs: Respirations even, regular, and unlabored on room air. Lungs CTA bilaterally, no rhonchi, no rales, no wheezing, and no accessory muscle usage. Abdominal: soft, nontender to palpation, no guarding, no appreciable organomega ly. Ileostomy right lower quadrant. Ext: ROM intact. No gross muscle atrophy, no edema, no contractures Neuro: Speech clear, face symmetrical and CN II-XII grossly intact with no noted focal neuro deficits Psych: Alert and oriented to person, place, time, and situation. Appropriate and pleasant affect. Assessment and Plan of Care: Status post incision and drainage of superficial back incisional abscess -Management per primary admitting orthospine surgery team including DVT prophylaxis, pain management, postoperative dressing change, and PT/OT. -Patient currently on DVT prophylaxis with heparin Hypertension -Monitor vital signs and we will substitute patient's home medication quinapril with lisinopril based on hospital availability. History of PFO, no longer on anticoagulation. History of CVA, no residual deficits -Strongly encourage patient that he will need to follow up with asset accountant, Dr. Ventura to discuss/evaluate PFO and need for lifelong anticoagulation vs closure -DVT prophylaxis currently with heparin. Anxiety -Continue daily medication regimen with trazodone and duloxetine. History of Ulcerative colitis with ileostomy in place -Ostomy care as needed. Thank you for allowing us to participate in the care of this pleasant patient. Do not hesitate to contact us with questions. Someone can be reached from the [facility] hospitalist group all hours of the day at [phone] or via [employer]. I reviewed the documentation as provided by the JAI above, who is the original author of this note. I agree with the documented assessment and plan, with the following changes: none Past Medical History Past Medical History: CVA/TIA, Hypertension Additional Past Medical History / Comment(s): Illeostomy, colitis, PFO History of Any Multi-Drug Resistant Organisms: None Reported Past Surgical History: Back Surgery Additional Past Surgical History / Comment(s): ostomy Past Anesthesia/Blood Transfusion Reactions: No Reported Reaction Past Psychological History: Depression Smoking Status: Never smoker Past Alcohol Use History: None Reported Past Drug Use History: None Reported - Past Family History Mother Family Medical History: No Reported History Medications and Allergies Home Medications Medication Instructions Recorded Confirmed Type Quinapril HCl [Accupril] 20 mg PO BID 11/02/21 02/12/22 History traZODone HCL 300 mg PO HS 11/02/21 02/12/22 History Ascorbic Acid [Vitamin C] 500 mg PO DAILY 02/10/22 02/12/22 History Calcium Carbonate [Calcium] 600 mg PO DAILY 02/10/22 02/12/22 History DULoxetine HCL [Cymbalta] 30 mg PO DAILY 02/10/22 02/12/22 History HYDROcodone/APAP 10-325MG [[place] 1 tab PO Q4HR PRN 02/10/22 02/12/22 History 10-325] Allergies Allergy/AdvReac Type Severity Reaction Status Date / Time No Known Allergies Allergy Verified 02/12/22 08:29 Physical Exam Osteopathic Statement: *. No significant issues noted on an osteopathic structural exam other than those noted in the History and Physical/Consult. Vitals: Vital Signs Temp Pulse Resp BP Pulse Ox 02/12/22 11:16 97.5 F L 58 L 17 132/82 99 02/12/22 10:45 75 16 127/73 100 02/12/22 10:30 80 16 122/67 100 02/12/22 10:15 88 16 121/63 100 02/12/22 10:11 97 F L 90 16 145/71 100 02/12/22 08:16 97 F L 60 16 124/77 97 Intake and Output 02/11/22 02/12/22 02/12/22 22:59 06:59 14:59 Intake Total 1151 Output Total 25 Balance 1126 Intake: IV 1151 Output: Estimated Blood Loss 25 Other: Weight 86.3 kg Results CBC & Chem 7: 02/12/22 08:15 02/12/22 08:15 Labs: Abnormal Lab Results - Last 24 Hours (Table) 02/12/22 02/12/22 Range/Units 08:15 08:15 ESR 46 H (0-15) mm/hr C-Reactive Protein 4.4 H (<1.0) mg/dL
[2022-02-12] MEDS: HEPARIN SODIUM,PORCINE/PF 5,000 UNIT/0.5 ML SYRINGE SQ SCH ×2 (17:39→23:11)
[2022-02-12] MEDS: VANCOMYCIN 1,500 MG in SODIUM CHLORIDE 0.9% 250 ML IVPB SCH (21:52)
[2022-02-12] MEDS: lisinopriL 20 MG TAB PO SCH (21:52)
--- NOTE | 2022-02-12 22:42 | P.CONS ---
History of Present Illness - Reason for Consult Consult date: 02/12/22 - History of Present Illness Patient is a 56-year-old male with a recent history of T12-L4 decompression and fusion patient apparently was doing well until about a week ago when the patient noticed to having increasing swelling to the lumbar spine incision area patient mention the area becoming swollen and bigger in size becoming painful describing it to be more of a dull aching to sharp 6-7 out of 10 no radiation patient apparently did have a drainage of the area last night patient was taken to the OR this morning with I&D of incisional back abscess debridement of the skin soft tissue and muscle and complex closure there was no mention of any extension down to the hardware deep cultures were obtained pat ient was started on vancomycin has been admitted to the hospital infectious disease was consulted for further management of antibiotic therapy PICC line has already been ordered by the orthopedic service on entering the room the patient has been noticing he would like to go home tomorrow no matter what Past Medical History Past Medical History: CVA/TIA, Hypertension Additional Past Medical History / Comment(s): Illeostomy, colitis, PFO History of Any Multi-Drug Resistant Organisms: None Reported Past Surgical History: Back Surgery Additional Past Surgical History / Comment(s): ostomy Past Anesthesia/Blood Transfusion Reactions: No Reported Reaction Past Psychological History: Depression Smoking Status: Never smoker Past Alcohol Use History: None Reported Past Drug Use History: None Reported - Past Family History Mother Family Medical History: No Reported History Medications and Allergies Home Medications Medication Instructions Recorded Confirmed Type Quinapril HCl [Accupril] 20 mg PO BID 11/02/21 02/12/22 History traZODone HCL 300 mg PO HS 11/02/21 02/12/22 History Ascorbic Acid [Vitamin C] 500 mg PO DAILY 02/10/22 02/12/22 History Calcium Carbonate [Calcium] 600 mg PO DAILY 02/10/22 02/12/22 History DULoxetine HCL [Cymbalta] 30 mg PO DAILY 02/10/22 02/12/22 History HYDROcodone/APAP 10-325MG [[place] 1 tab PO Q4HR PRN 02/10/22 02/12/22 History 10-325] Allergies Allergy/AdvReac Type Severity Reaction Status Date / Time No Known Allergies Allergy Verified 02/12/22 08:29 Physical Exam Vitals: Vital Signs Temp Pulse Resp BP Pulse Ox 02/12/22 13:53 98 F 82 17 147/93 100 02/12/22 13:24 72 149/92 02/12/22 12:53 60 136/87 02/12/22 12:38 65 136/89 02/12/22 12:23 60 148/91 02/12/22 12:08 56 L 133/82 02/12/22 11:16 97.5 F L 58 L 17 132/82 99 02/12/22 10:45 75 16 127/73 100 02/12/22 10:30 80 16 122/67 100 02/12/22 10:15 88 16 121/63 100 02/12/22 10:11 97 F L 90 16 145/71 100 02/12/22 08:16 97 F L 60 16 124/77 97 Intake and Output 02/12/22 02/12/22 02/12/22 06:59 14:59 22:59 Intake Total 1151 Output Total 25 Balance 1126 Intake: IV 1151 Output: Estimated Blood Loss 25 Other: Weight 86.3 kg Results CBC & Chem 7: 02/12/22 08:15 02/12/22 08:15 Labs: Abnormal Lab Results - Last 24 Hours (Table) 02/12/22 02/12/22 02/12/22 Range/Units 08:15 08:15 12:03 ESR 46 H (0-15) mm/hr C-Reactive Protein 4.4 H 4.0 H (<1.0) mg/dL Microbiology - Last 24 Hours (Table) 02/12/22 09:50 Anaerobic Culture - Preliminary Back 02/12/22 09:49 Tissue Culture - Preliminary Back 02/12/22 09:49 Anaerobic Culture - Preliminary Back 02/12/22 09:50 Wound Culture - Preliminary Back Assessment and Plan Plan: 1patient with a superficial thoracolumbar spine incision infection with an abscess s/p drainage with no evidence of any extension down to the hardware in this patient not running any fever and did not have any elevated white count clinically not behaving as a deep infection either and will cover for gram- positive skin naomi to the likely pathogen. 2blood cultures have been obtained to make sure patient is not bacteremic we will also check a CRP and a sed rate. 3vancomycin pharmacy to dose target trough of 15 while watching kidney function and vancomycin trough closely. 4discharge antibiotic will depend upon the final culture this has been exp lained to the patient in layman term. integrated campaign manager has been informed to start working on outpatient antibiotic arrangement We will follow on clinical condition and cultures to further adjust medication if needed Thank you for this consultation will follow this patient along with you Time with Patient: Greater than 30
[2022-02-12] MEDS: traZODone HCL 100 MG TAB PO SCH (23:12)
[2022-02-13] MEDS: ACETAMINOPHEN TAB 500 MG TAB PO SCH ×4 (01:19→17:15)
[2022-02-13] MEDS: 0.9% NACL WITH KCL 20 MEQ/L 1,000 ML IV SCH (06:31)
[2022-02-13] MEDS: HEPARIN SODIUM,PORCINE/PF 5,000 UNIT/0.5 ML SYRINGE SQ SCH ×2 (06:36→17:18)
[2022-02-13] MEDS: lisinopriL 20 MG TAB PO SCH ×2 (07:13→20:20)
[2022-02-13] MEDS: DULoxetine HCL 30 MG CAPSULE.DR PO SCH (07:13)
[2022-02-13 08:19] LABS: African American GFR (CKD) >90 (>60 ml/min/1.73 sqM); Anion Gap 5 mmol/L; Blood Urea Nitrogen 15 mg/dL (9-20); Calcium 8.6 mg/dL (8.4-10.2); Carbon Dioxide 20 mmol/L (22-30); Chloride 112 mmol/L (98-107); Glucose 130 mg/dL (74-99); Non-African American GFR(CKD) >90 (>60 ml/min/1.73 sqM); Potassium 5.1 mmol/L (3.5-5.1); Sodium 137 mmol/L (137-145)
[2022-02-13 08:40] LABS: Basophils % (A) 0 %; Eosinophils # (A) 0.1 k/uL (0-0.7); Eosinophils % (A) 1 %; HCT 36.1 % (39.0-53.0); HGB 12.3 gm/dL (13.0-17.5); Lymphocytes # (A) 1.7 k/uL (1.0-4.8); Lymphocytes % (A) 18 %; MCH 30.5 pg (25.0-35.0); MCHC 33.9 g/dL (31.0-37.0); Mean Platelet Volume 8.6; Monocytes # (A) 0.5 k/uL (0-1.0); Monocytes % (A) 5 %; Neutrophils # (A) 6.9 k/uL (1.3-7.7); Neutrophils % (A) 74 %; Platelet Count 262 k/uL (150-450); RBC 4.02 m/uL (4.30-5.90); RDW 13.2 % (11.5-15.5); WBC 9.4 k/uL (3.8-10.6)
--- NOTE | 2022-02-13 09:26 | P.PN ---
Subjective Progress Note Date: 02/13/22 Hospital course: Patient is a very pleasant 56-year-old male with a past medical history of hypertension, CVA, PFO no longer on anticoagulation reporting he took himself off of anticoagulation when he developed complications with his ulcerative colitis and never followed back up with cardiology for PFO closure or resumption of anticoagulant as this was in [place], ulcerative colitis with ileostomy, anxiety, and spinal stenosis status post T12 through L4 decompression and fusion.. Patient is currently admitted under orthospine surgical team status post incision and drainage of superficial back incisional abscess. We have been consulted for continued medical management throughout patient's hospitalization. Physical exam: Patient seen and fully evaluated at bedside this morning. Patient reports postoperative pain controlled at this time. Morning labs unremarkable with the exception of mild postoperative blood loss anemia with hemoglobin of 12.3, expected finding and stable. Vital signs unremarkable. Patient denies having any new complaints or concerns at this time. Wound cultures pending, patient to remain on IV antibiotics with vancomycin pending final culture and sensitivity reports. Vital signs reviewed and stable. General: Nontoxic, no distress and appears stated age. Derm: Skin warm and dry, normal coloration for ethnicity. Dressing to lumbar re gion of the back is clean, dry, and intact with no signs of bleeding or drainage. Head: Atraumatic, normocephalic and symmetric. Eyes: EOMs intact, no lid lag, and anicteric sclera Mouth: no lip lesions, mucus membranes moist Cardiovascular: regular rate and rhythm with normal S1S2, systolic murmur, positive posterior tibial pulses bilaterally, and cap refill < 2 seconds. Lungs: Respirations even, regular, and unlabored on room air. Lungs CTA bilaterally, no rhonchi, no rales, no wheezing, and no accessory muscle usage. Abdominal: soft, nontender to palpation, no guarding, no appreciable organomegaly. Ileostomy right lower quadrant. Ext: ROM intact. No gross muscle atrophy, no edema, no contractures Neuro: Speech clear, face symmetrical and CN II-XII grossly intact with no noted focal neuro deficits Psych: Alert and oriented to person, place, time, and situation. Appropriate and pleasant affect. Assessment and Plan of Care: Status post incision and drainage of superficial back incisional abscess -Management per primary admitting orthospine surgery team including DVT proph ylaxis, pain management, postoperative dressing change, and PT/OT. -Patient currently on DVT prophylaxis with heparin -Continuation of IV antibiotics with vancomycin pending final culture and sensi tivity reports. -Infectious disease following. Acute postoperative blood loss anemia, expected finding and stable. -Hemoglobin 12.3. Hyperchloremia -0.9% normal saline infusion discontinued at this time. Hypertension -Monitor vital signs and we will substitute patient's home medication quinapril with lisinopril based on hospital availability. History of PFO, no longer on anticoagulation. History of CVA, no residual deficits -Strongly encourage patient that he will need to follow up with under seal operator, Dr. Ventura to discuss/evaluate PFO and need for lifelong anticoagulation vs closure -DVT prophylaxis currently with heparin. Anxiety -Continue daily medication regimen with trazodone and duloxetine. History of Ulcerative colitis with ileostomy in place -Ostomy care as needed. Thank you for allowing us to participate in the care of this pleasant patient. Do not hesitate to contact us with questions. Someone can be reached from the [facility] hospitalist group all hours of the day at [phone] or via [employer]. I reviewed the documentation as provided by the JAI above, who is the original author of this note. I agree with the documented assessment and plan, with the following changes: none Objective - Vital Signs Vital signs: Vital Signs Temp 97.4 F L 02/13/22 07:29 Pulse 56 L 02/13/22 07:29 Resp 18 02/13/22 07:29 BP 135/80 02/13/22 07:29 Pulse Ox 99 02/13/22 07:29 FiO2 Intake & Output 02/12/22 02/13/22 02/13/22 18:59 06:59 18:59 Intake Total 1151 400 Output Total 25 Balance 1126 400 Weight 86.3 kg Intake: IV 1151 Oral 400 Output: Estimated Blood Loss 25 Other: # Voids 2 - Labs CBC & Chem 7: 02/13/22 07:37 02/13/22 07:37 Labs: Abnormal Lab Results - Last 24 Hours (Table) 02/12/22 02/12/22 02/12/22 Range/Units 08:15 12:03 12:03 RBC (4.30-5.90) m/uL Hgb (13.0-17.5) gm/dL Hct (39.0-53.0) % ESR 46 H 40 H (0-15) mm/hr Chloride (98-107) mmol/L Carbon Dioxide (22-30) mmol/L Glucose (74-99) mg/dL C-Reactive Protein 4.0 H (<1.0) mg/dL 02/13/22 02/13/22 Range/Units 07:37 07:37 RBC 4.02 L (4.30-5.90) m/uL Hgb 12.3 L (13.0-17.5) gm/dL Hct 36.1 L (39.0-53.0) % ESR (0-15) mm/hr Chloride 112 H (98-107) mmol/L Carbon Dioxide 20 L (22-30) mmol/L Glucose 130 H (74-99) mg/dL C-Reactive Protein (<1.0) mg/dL Microbiology - Last 24 Hours (Table) 02/12/22 09:50 Gram Stain - Preliminary Back Wound Culture - Preliminary 02/12/22 09:49 Gram Stain - Preliminary Back Tissue Culture - Preliminary 02/12/22 09:49 Gram Stain - Preliminary Back Wound Culture - Preliminary 02/12/22 09:49 Anaerobic Culture - Preliminary Back 02/12/22 09:50 Anaerobic Culture - Preliminary Back 02/12/22 09:49 Anaerobic Culture - Preliminary Back
[2022-02-13] MEDS: VANCOMYCIN 1,500 MG in SODIUM CHLORIDE 0.9% 250 ML IVPB SCH ×2 (09:58→17:18)
--- NOTE | 2022-02-13 13:24 | P.PN ---
Subjective Progress Note Date: 02/13/22 Principal diagnosis: Status post I&D superficial incisional back Patient was evaluated today at bedside, he is resting in his hospital bed. Patient is rather comfortable at this time, he has minimal discomfort near the incision site. Preliminary cultures are showing no obvious bacteria on Gram stain. Patient is very adamant about being discharged and not having to stay in the hospital all weekend. Patient is urinating with no difficulties. Patient currently denies any headaches, lightheadedness, shortness of breath, chest pain, nausea vomiting, fever or chills. Objective - Vital Signs Vital signs: Vital Signs Temp 97.4 F L 02/13/22 07:29 Pulse 56 L 02/13/22 07:29 Resp 18 02/13/22 07:29 BP 135/80 02/13/22 07:29 Pulse Ox 99 02/13/22 07:29 FiO2 Intake & Output 02/12/22 02/13/22 02/13/22 18:59 06:59 18:59 Intake Total 1151 400 Output Total 25 Balance 1126 400 Weight 86.3 kg Intake: IV 1151 Oral 400 Output: Estimated Blood Loss 25 Other: # Voids 2 - Exam Gen: AOx3, NAD VSS stable at this time Integument: Postoperative dressing was removed, sutures are all in good position and condition. Minimal erythema near the skin edges. No fluctuance is appreciated. Palpation: Mild tenderness to palpation on the medial and lateral borders of the incision ROM: For range of motion all major muscle groups of the bilateral upper and lower extremities Sensory Exam: Senory exam to light touch is intact C5-T1 Senosry exam to light touch is intact L2-S1 Motor: 55 strength appreciated in the bilateral upper extremities with shoulder abduction, forward elevation, elbow extension, elbow flexion, wrist extension, wrist flexion, loss prevention associate 55 strength appreciated in the bilateral lower extremities with hip flexion, knee extension, knee flexion, plantar flexion, dorsiflexion, EHL, FHL Reflexes: 2/4 in all UE and LE Negative Brandan's bilaterally Negative Babinski bilaterally Negative clonus bilaterally - Labs CBC & Chem 7: 02/13/22 07:37 02/13/22 07:37 Labs: Abnormal Lab Results - Last 24 Hours (Table) 02/12/22 02/13/22 02/13/22 Range/Units 12:03 07:37 07:37 RBC 4.02 L (4.30-5.90) m/uL Hgb 12.3 L (13.0-17.5) gm/dL Hct 36.1 L (39.0-53.0) % ESR 40 H (0-15) mm/hr Chloride 112 H (98-107) mmol/L Carbon Dioxide 20 L (22-30) mmol/L Glucose 130 H (74-99) mg/dL Microbiology - Last 24 Hours (Table) 02/12/22 09:50 Gram Stain - Preliminary Back Wound Culture - Preliminary 02/12/22 09:49 Gram Stain - Preliminary Back Tissue Culture - Preliminary 02/12/22 09:49 Gram Stain - Preliminary Back Wound Culture - Preliminary 02/12/22 09:49 Anaerobic Culture - Preliminary Back 02/12/22 09:50 Anaerobic Culture - Preliminary Back 02/12/22 09:49 Anaerobic Culture - Preliminary Back Assessment and Plan Assessment: Postoperative day #1 status post I&D superficial incisional back abscess Plan: Pain control, patient will continue with current oral medication DVT prophylaxis, continue subcu medication Wound care, a new foam dressing has been ordered, nursing will place once available Activity level restrictions were discussed, this to include no lifting, bending, twisting over 10 pounds I had multiple discussions today with case management, my attending Dr. Corona and infectious disease regarding patient's outpatient treatment. Due to the patient's insurance, we cannot begin IV antibiotics in the outpatient setting until the cultures have been finalized. Patient is very adamant about being discharged home and not having to stay a weekend. Our plan is to have patient stay 1 additional night in the hospital to receive IV antibiotics. Plan for discharge home on 02/14/2022 on oral antibiotics. We will then monitor his culture sensitivity results early next week with planned follow-up with both internal medicine and infectious disease for evaluation. Discharge plan: Plan for discharge home on 02/14/2022 Time with Patient: Less than 30
[2022-02-13] MEDS: traZODone HCL 100 MG TAB PO SCH (20:20)
[2022-02-14] MEDS: HEPARIN SODIUM,PORCINE/PF 5,000 UNIT/0.5 ML SYRINGE SQ SCH ×3 (00:33→16:28)
[2022-02-14] MEDS: ACETAMINOPHEN TAB 500 MG TAB PO SCH ×5 (00:35→20:25)
[2022-02-14] MEDS: ONDANSETRON 4 MG/2 ML VIAL IVP PRN ×2 (01:44→17:53)
[2022-02-14] MEDS: VANCOMYCIN 1,500 MG in SODIUM CHLORIDE 0.9% 250 ML IVPB SCH ×3 (02:30→10:23)
[2022-02-14] MEDS: lisinopriL 20 MG TAB PO SCH (08:32)
[2022-02-14] MEDS ORDERED: SODIUM CHLORIDE 0.9% 500 ML 500 ML IV ONE (08:33)
[2022-02-14] MEDS ORDERED: LACTATED RINGERS 1,000 ML IV SCH ×2 (08:45→11:15)
[2022-02-14] MEDS ORDERED: SODIUM CHLORIDE 0.9% 1,000 ML IV SCH (08:45)
[2022-02-14] MEDS: DULoxetine HCL 30 MG CAPSULE.DR PO SCH (08:46)
--- NOTE | 2022-02-14 08:54 | P.PN ---
Subjective Progress Note Date: 02/14/22 Subjective: Patient seen and examined. States yesterday he was feeling upset stomach. He felt nauseous but did not have to throw up. So from helped. He has been having increasing amount of watery stools in his ostomy bag and into empty multiple times. This morning patient is hypotensive with a blood pressure of 79/51. Patient does not have any symptoms from that. Denies any chest pain, shortness of breath, lightheadedness, dizziness. Physical exam: Vital signs reviewed and stable. General: Nontoxic, no distress and appears stated age. Derm: Skin warm and dry, normal coloration for ethnicity. Dressing to lumbar region of the back is clean, dry, and intact with no signs of bleeding or drainage. Head: Atraumatic, normocephalic and symmetric. Eyes: EOMs intact, no lid lag, and anicteric sclera Mouth: no lip lesions, mucus membranes moist Cardiovascular: regular rate and rhythm with normal S1S2, systolic murmur, positive posterior tibial pulses bilaterally, and cap refill < 2 seconds. Lungs: Respirations even, regular, and unlabored on room air. Lungs CTA bilaterally, no rhonchi, no rales, no wheezing, and no accessory muscle usage. Abdominal: soft, nontender to palpation, no guarding, no appreciable organomegaly. Ileostomy right lower quadrant. Ext: ROM intact. No gross muscle atrophy, no edema, no contractures Psych: Alert and oriented to person, place, time, and situation. Appropriate and pleasant affect. Assessment and Plan of Care: Asymptomatic hypotension: We'll give him 500 mL bolus and recheck the blood pressure and call me back with results. Continue IV fluids for now We'll hold his lisinopril dose for today and resume tomorrow at 10 mg twice a day with hold parameters if Pressure improves. Status post incision and drainage of superficial back incisional abscess -Management per primary admitting orthospine surgery team including DVT prophylaxis, pain management, postoperative dressing change, and PT/OT. -Patient currently on DVT prophylaxis with heparin -Continuation of IV antibiotics with vancomycin pending final culture and sensitivity reports. -Infectious disease following. Acute postoperative blood loss anemia, expected finding and stable. -Hemoglobin 12.3. Hypertension -Monitor vital signs and we will substitute patient's home medication quinapril with lisinopril based on hospital availability. History of PFO, no longer on anticoagulation. History of CVA, no residual deficits -Strongly encourage patient that he will need to follow up with coin machine servicer repairer, Dr. Ventura to discuss/evaluate PFO and need for lifelong anticoagulation vs closure -DVT prophylaxis currently with heparin. Anxiety -Continue daily medication regimen with trazodone and duloxetine. History of Ulcerative colitis with ileostomy in place -Ostomy care as needed. Objective - Vital Signs Vital signs: Vital Signs Temp 98.7 F 02/14/22 08:00 Pulse 84 02/14/22 08:00 Resp 18 02/14/22 08:00 BP 79/51 02/14/22 08:00 Pulse Ox 97 02/14/22 08:00 FiO2 Intake & Output 02/13/22 02/14/22 02/14/22 18:59 06:59 18:59 Intake Total 480 470 Balance 480 470 Intake: Intake, IV Titration 250 Amount Vancomycin 1,500 mg In 250 Sodium Chloride 0.9% 250 ml @ 125 mls/hr IVPB Q8H [facility] Rx#:[id number] Oral 480 220 Other: Voiding Method Toilet Urinal # Voids 2 - Labs CBC & Chem 7: 02/13/22 07:37 02/13/22 07:37 Labs: Abnormal Lab Results - Last 24 Hours (Table) 02/13/22 Range/Units 07:37 RBC 4.02 L (4.30-5.90) m/uL Hgb 12.3 L (13.0-17.5) gm/dL Hct 36.1 L (39.0-53.0) % Microbiology - Last 24 Hours (Table) 02/12/22 12:03 Blood Culture - Preliminary Blood No Growth after 24 hours 02/12/22 09:50 Gram Stain - Preliminary Back Wound Culture - Preliminary 02/12/22 09:49 Gram Stain - Preliminary Back Tissue Culture - Preliminary 02/12/22 09:49 Gram Stain - Preliminary Back Wound Culture - Preliminary
[2022-02-14] MEDS ORDERED: VANCOMYCIN TROUGH DUE 1 EACH MISC MISCELLANE ONE (09:00)
--- NOTE | 2022-02-14 09:59 | P.PN ---
Subjective Progress Note Date: 02/14/22 Principal diagnosis: Status post I&D superficial incisional back Patient was evaluated today at bedside, he is resting in his hospital bed. Patient was noted to have Pa a significant drop in his blood pressure overnight. He states that he had multiple watery stools in his ostomy bag. He believes it was due to the vancomycin, he did refuse his current dose this morning. Patient was receiving a 500 mL fluid bolus at this time. patient notes minimal discomfort in the back at this time. currently denies any headaches, lightheadedness, shortness of breath, chest pain, nausea vomiting, fever or chills. Objective - Vital Signs Vital signs: Vital Signs Temp 98.7 F 02/14/22 08:00 Pulse 84 02/14/22 08:00 Resp 18 02/14/22 08:00 BP 79/51 02/14/22 08:00 Pulse Ox 97 02/14/22 08:00 FiO2 Intake & Output 02/13/22 02/14/22 02/14/22 18:59 06:59 18:59 Intake Total 480 470 Balance 480 470 Intake: Intake, IV Titration 250 Amount Vancomycin 1,500 mg In 250 Sodium Chloride 0.9% 250 ml @ 125 mls/hr IVPB Q8H [facility] Rx#:[id number] Oral 480 220 Other: Voiding Method Toilet Urinal # Voids 2 - Exam Gen: AOx3, NAD VSS stable at this time Integument: Postoperative dressing is a good position and condition, no active drainage Palpation: Mild tenderness to palpation on the medial and lateral borders of the incision ROM: For range of motion all major muscle groups of the bilateral upper and lower extremities Sensory Exam: Senory exam to light touch is intact C5-T1 Senosry exam to light touch is intact L2-S1 Motor: 55 strength appreciated in the bilateral upper extremities with shoulder abduction, forward elevation, elbow extension, elbow flexion, wrist extension, wrist flexion, motion study analyst 55 strength appreciated in the bilateral lower extremities with hip flexion, knee extension, knee flexion, plantar flexion, dorsiflexion, EHL, FHL Reflexes: 2/4 in all UE and LE Negative Brandan's bilaterally Negative Babinski bilaterally Negative clonus bilaterally - Labs CBC & Chem 7: 02/13/22 07:37 02/14/22 08:21 Labs: Abnormal Lab Results - Last 24 Hours (Table) 02/14/22 Range/Units 08:21 Creatinine 1.75 H (0.66-1.25) mg/dL Microbiology - Last 24 Hours (Table) 02/12/22 12:03 Blood Culture - Preliminary Blood No Growth after 24 hours 02/12/22 09:50 Gram Stain - Preliminary Back Wound Culture - Preliminary 02/12/22 09:49 Gram Stain - Preliminary Back Tissue Culture - Preliminary 02/12/22 09:49 Gram Stain - Preliminary Back Wound Culture - Preliminary Assessment and Plan Assessment: Postoperative day #2 status post I&D superficial incisional back abscess Plan: Pain control, patient will continue with current oral medication DVT prophylaxis, continue subcu medication during hospital stay Wound care, we foam dressing in place Activity level restrictions were discussed, this to include no lifting, bending, twisting over 10 pounds We'll reassess blood pressure after fluid bolus administration. Discharge plan: The patient's vitals improve, he may be discharged home. Bactrim DS will be sent to pharmacy. Patient will recheck with Dr. woodward in the office early next week. We will reassess final culture/sensitivity an 82,022 and make proper recommendation Time with Patient: Less than 30
[2022-02-14] MEDS ORDERED: LACTATED RINGERS 500 ML IV ONE (10:15)
[2022-02-14] MEDS ORDERED: VANCOMYCIN IV PER PHARMACY 1 EACH MISC MISCELLANE PRN (11:13)
[2022-02-14 12:09] LABS: Basophils # (A) 0.02 X 10*3/uL (0.00-0.10); Basophils % (A) 0.2 %; Eosinophils % (A) 1.9 %; HGB 12.8 g/dL (13.0-17.0); Immature Grans, Automated 0.3 %; Lymphocytes # (A) 0.62 X 10*3/uL (0.90-5.00); Lymphocytes % (A) 5.7 %; MCH 28.2 pg (27.0-32.0); MCHC 31.2 g/dL (32.0-37.0); MCV 90.3 fL (80.0-97.0); Mean Platelet Volume 9.5 fL (9.5-12.2); Monocytes # (A) 0.84 X 10*3/uL (0.20-1.00); Monocytes % (A) 7.8 %; NRBC Per 100 WBC 0 /100 WBCS (0.0-0.0); Neutrophils % (A) 84.1 %; Platelet Count 287 X 10*3/uL (140-440); RBC 4.54 X 10*6/uL (4.40-5.60); RDW 13.1 % (11.5-14.5); WBC 10.81 X 10*3/uL (4.50-10.00)
[2022-02-14 13:12] LABS: African American GFR (CKD) 51.8 (60.0-200.0); Anion Gap 15.6 mmol/L (10.00-18.00); BUN/Creat Ratio 7.82 Ratio (12.00-20.00); Blood Urea Nitrogen 13.3 mg/dL (9.0-27.0); Calcium 9.2 mg/dL (8.7-10.3); Carbon Dioxide 20.4 mmol/L (20.0-27.5); Non-African American GFR(CKD) 44.7 (60.0-200.0); Potassium 4.3 mmol/L (3.5-5.5)
[2022-02-14] MEDS ORDERED: DAPTOmycin 500 MG VIAL IVPB SCH (13:30)
[2022-02-14] MEDS: DAPTOmycin 500 MG in SODIUM CHLORIDE 0.9% 50 ML IVPB SCH (14:35)
[2022-02-14] MEDS: LACTATED RINGERS 1,000 ML IV SCH (16:28)
--- NOTE | 2022-02-14 19:51 | P.PN ---
Subjective Progress Note Date: 02/13/22 Principal diagnosis: Lower back abscess and cellulitis Patient is a 56-year-old male with a recent history of T12-L4 decompression and fusion patient developing increasing swelling to the lumbar spine incision area patient mention the area becoming swollen and did have drainage of the area subsequently patient was taken to the OR with I&D of incisional back abscess debridement of the skin soft tissue and muscle and complex closure there was no mention of any extension down to the hardware. On today's evaluation that is 02/13/2022, the patient denies having any fever or any chills, the patient lower back pain is currently controlled, the patient denies having any chest pain or shortness of breath or cough no nausea vomiting no abdominal pain no diarrhea Objective - Vital Signs Vital signs: Vital Signs Temp 97.4 F L 02/13/22 07:29 Pulse 56 L 02/13/22 07:29 Resp 18 02/13/22 07:29 BP 135/80 02/13/22 07:29 Pulse Ox 99 02/13/22 07:29 FiO2 Intake & Output 02/12/22 02/13/22 02/13/22 18:59 06:59 18:59 Intake Total 1151 400 Output Total 25 Balance 1126 400 Weight 86.3 kg Intake: IV 1151 Oral 400 Output: Estimated Blood Loss 25 Other: # Voids 2 - Exam GENERAL DESCRIPTION: Middle-aged male lying in bed in no distress RESPIRATORY SYSTEM: Unlabored breathing , decreased breath sounds at bases HEART: S1 S2 regular rate and rhythm , ABDOMEN: Soft , no tenderness EXTREMITIES: No edema feet - Labs CBC & Chem 7: 02/14/22 08:21 02/14/22 08:21 Labs: Abnormal Lab Results - Last 24 Hours (Table) 02/12/22 02/12/22 02/13/22 Range/Units 12:03 12:03 07:37 RBC 4.02 L (4.30-5.90) m/uL Hgb 12.3 L (13.0-17.5) gm/dL Hct 36.1 L (39.0-53.0) % ESR 40 H (0-15) mm/hr Chloride (98-107) mmol/L Carbon Dioxide (22-30) mmol/L Glucose (74-99) mg/dL C-Reactive Protein 4.0 H (<1.0) mg/dL 02/13/22 Range/Units 07:37 RBC (4.30-5.90) m/uL Hgb (13.0-17.5) gm/dL Hct (39.0-53.0) % ESR (0-15) mm/hr Chloride 112 H (98-107) mmol/L Carbon Dioxide 20 L (22-30) mmol/L Glucose 130 H (74-99) mg/dL C-Reactive Protein (<1.0) mg/dL Microbiology - Last 24 Hours (Table) 02/12/22 09:50 Gram Stain - Preliminary Back Wound Culture - Preliminary 02/12/22 09:49 Gram Stain - Preliminary Back Tissue Culture - Preliminary 02/12/22 09:49 Gram Stain - Preliminary Back Wound Culture - Preliminary 02/12/22 09:49 Anaerobic Culture - Preliminary Back 02/12/22 09:50 Anaerobic Culture - Preliminary Back 02/12/22 09:49 Anaerobic Culture - Preliminary Back Assessment and Plan (1) Incisional abscess Current Visit: Yes Status: Acute Code(s): T81.49XA - INFECTION FOLLOWING A PROCEDURE, OTHER SURGICAL SITE, INIT SNOMED Code(s): 10312587 Plan: 1patient with a superficial thoracolumbar spine incision infection with an abscess s/p drainage with no evidence of any extension down to the hardware in this patient not running any fever and did not have any elevated white count clinically not behaving as a deep infection either and will cover for gram- positive skin naomi to the likely pathogen. 2blood cultures has been obtained which are currently pending and local cultures are pending 3patient to continue with vancomycin pharmacy to dose target trough of 15 while watching kidney function and vancomycin trough closely. Patient has been insisting on going home has been advised to stay in the hospital till the cultures are finalized Time with Patient: Less than 30
--- NOTE | 2022-02-14 19:53 | P.PN ---
Subjective Progress Note Date: 02/14/22 Principal diagnosis: Lower back abscess and cellulitis Patient is a 56-year-old male with a recent history of T12-L4 decompression and fusion patient developing increasing swelling to the lumbar spine incision area patient mention the area becoming swollen and did have drainage of the area subsequently patient was taken to the OR with I&D of incisional back abscess debridement of the skin soft tissue and muscle and complex closure there was no mention of any extension down to the hardware. On today's evaluation that is 02/14/2022, the patient remains to be afebrile, the patient lower back pain is currently controlled, the patient denies having any chest pain or shortness of breath or cough patient did mention having gastric upset nausea last night blended on the vancomycin and the patient has refused also having increasing output in his ileostomy Objective - Vital Signs Vital signs: Vital Signs Temp 98.7 F 02/14/22 08:00 Pulse 85 02/14/22 11:22 Resp 18 02/14/22 08:00 BP 80/51 02/14/22 11:22 Pulse Ox 97 02/14/22 08:00 FiO2 Intake & Output 02/13/22 02/14/22 02/14/22 18:59 06:59 18:59 Intake Total 424 643 9640 Output Total 300 Balance 480 470 900 Intake: Intake, IV Titration 250 1200 Amount Lactated Ringers 1,000 ml 200 @ 100 mls/hr IV .Q10H [facility] Rx#:[id number] Lactated Ringers 500 ml @ 500 999 mls/hr IV .Q31M [facility] Rx#:[id number] Sodium Chloride 0.9% 500 500 ml 500 ml @ 999 mls/hr IV .Q31M [facility] Rx#:[id number] Vancomycin 1,500 mg In 250 Sodium Chloride 0.9% 250 ml @ 125 mls/hr IVPB Q8H [facility] Rx#:[id number] Oral 480 220 Output: Stool 300 Other: Voiding Method Toilet Urinal # Voids 2 - Exam GENERAL DESCRIPTION: Middle-aged male lying in bed in no distress RESPIRATORY SYSTEM: Unlabored breathing , decreased breath sounds at bases HEART: S1 S2 regular rate and rhythm , ABDOMEN: Soft , no tenderness EXTREMITIES: No edema feet - Labs CBC & Chem 7: 02/14/22 08:21 02/14/22 08:21 Labs: Abnormal Lab Results - Last 24 Hours (Table) 02/14/22 02/14/22 Range/Units 08:21 08:21 WBC 10.81 H (4.50-10.00) X 10*3/uL Hgb 12.8 L (13.0-17.0) g/dL MCHC 31.2 L (32.0-37.0) g/dL Neutrophils # 9.10 H (1.80-7.70) X 10*3/uL Lymphocytes # 0.62 L (0.90-5.00) X 10*3/uL Creatinine 1.75 H (0.66-1.25) mg/dL Microbiology - Last 24 Hours (Table) 02/12/22 12:03 Blood Culture - Preliminary Blood No Growth after 24 hours 02/12/22 09:50 Gram Stain - Preliminary Back Wound Culture - Preliminary 02/12/22 09:49 Gram Stain - Preliminary Back Tissue Culture - Preliminary 02/12/22 09:49 Gram Stain - Preliminary Back Wound Culture - Preliminary Assessment and Plan (1) Incisional abscess Current Visit: Yes Status: Acute Code(s): T81.49XA - INFECTION FOLLOWING A PROCEDURE, OTHER SURGICAL SITE, INIT SNOMED Code(s): 89360381 Plan: 1patient with a superficial thoracolumbar spine incision infection with an abscess s/p drainage with no evidence of any extension down to the hardware in this patient not running any fever and did not have any elevated white count clinically not behaving as a deep infection either and will cover for gram- positive skin naomi to the likely pathogen. 2blood cultures has been obtained which are currently pending and local cultures are pending 3patient apparently has developed some GI symptoms clinically doubt related to vancomycin however the patient has been refusing vancomycin he also have slight worsening of his creatinine though Vanco level was therapeutic we will switch him over to daptomycin while waiting for the cultures to finalize Time with Patient: Less than 30
[2022-02-14] MEDS: traZODone HCL 100 MG TAB PO SCH (21:55)
[2022-02-15 01:05] LABS: Creatinine,Urine Random 324.3 mg/dL
[2022-02-15] MEDS ORDERED: SODIUM CHLORIDE 0.9% 1,000 ML IV ONE (01:43)
[2022-02-15] MEDS: LACTATED RINGERS 1,000 ML IV SCH ×4 (01:53→21:02)
[2022-02-15] MEDS: HEPARIN SODIUM,PORCINE/PF 5,000 UNIT/0.5 ML SYRINGE SQ SCH ×4 (01:53→22:42)
[2022-02-15] MEDS ORDERED: lisinopriL 10 MG TAB PO SCH (09:00)
--- NOTE | 2022-02-15 09:22 | P.NPCON ---
History of Present Illness - Reason for Consult acute renal failure - History of Present Illness patient is a 56-year-old male with history of hypertension, CVA, ulcerative colitis status post colectomy and ileostomy. Patient has underlying history of spinal stenosis. He is status post T12 through L4 decompression and fusion. Patient was noted to have an incisional abscess and is status post I&D. serum creatinine was 0.79 on 02/13/2022 and increased to 1.7 on 02/14/2022. patient has been voiding. Blood pressure has been low with systolic 85-99 mmHg. Currently maintained on IV fluids. Patient was initially on vancomycin and now changed to daptomycin. Vancomycin level was 17.7 on 02/15/2000 Review of Systems as per HPI Past Medical History Past Medical History: CVA/TIA, Hypertension Additional Past Medical History / Comment(s): Illeostomy, colitis, PFO History of Any Multi-Drug Resistant Organisms: None Reported Past Surgical History: Back Surgery Additional Past Surgical History / Comment(s): ostomy Past Anesthesia/Blood Transfusion Reactions: No Reported Reaction Past Psychological History: Depression Smoking Status: Never smoker Past Alcohol Use History: None Reported Past Drug Use History: None Reported - Past Family History Mother Family Medical History: No Reported History Medications and Allergies Home Medications Medication Instructions Recorded Confirmed Type Quinapril HCl [Accupril] 20 mg PO BID 11/02/21 02/12/22 History traZODone HCL 300 mg PO HS 11/02/21 02/12/22 History Ascorbic Acid [Vitamin C] 500 mg PO DAILY 02/10/22 02/12/22 History Calcium Carbonate [Calcium] 600 mg PO DAILY 02/10/22 02/12/22 History DULoxetine HCL [Cymbalta] 30 mg PO DAILY 02/10/22 02/12/22 History HYDROcodone/APAP 10-325MG [[place] 1 tab PO Q4HR PRN 02/10/22 02/12/22 History 10-325] Sulfamethox-Tmp 800-160Mg [Bactrim 1 tab PO Q12HR #28 tab 02/14/22 Rx DS 800-160 mg] Allergies Allergy/AdvReac Type Severity Reaction Status Date / Time No Known Allergies Allergy Verified 02/12/22 08:29 Physical Exam Vitals: Vital Signs Temp Pulse Pulse Resp BP Pulse Ox 02/15/22 05:25 99/64 02/15/22 02:00 98.2 F 78 16 85/47 98 02/14/22 20:09 98.5 F 74 17 99/64 100 02/14/22 20:00 74 17 02/14/22 17:51 79 18 106/69 99 02/14/22 14:42 98.4 F 88 20 86/56 99 02/14/22 13:02 98.5 F 78 18 92/51 99 02/14/22 11:22 85 80/51 02/14/22 09:30 80 87/48 Intake and Output 02/14/22 02/15/22 02/15/22 22:59 06:59 14:59 Intake Total 1350 Output Total 350 Balance 1000 Intake: Intake, IV Titration 850 Amount DAPTOmycin 500 mg In 50 Sodium Chloride 0.9% 50 ml @ 100 mls/hr IVPB Q24H [facility] Rx#:[id number] Lactated Ringers 1,000 ml 500 @ 100 mls/hr IV .Q10H [facility] Rx#:[id number] Lactated Ringers 1,000 ml 300 @ 150 mls/hr IV .Q6H40M [facility] Rx#:[id number] Oral 500 Output: Urine 50 Stool 300 Other: Voiding Method Toilet Urinal # Voids 2 4 awake, comfortable, not in any acute distress Examination of the heart S1 and S2 Examination of the lungs bilateral breath sounds are heard Abdomen is soft nontender Examination of the lower extremity shows no evidence of edema WATER CHEMIST exam grossly intact Results - Lab Results Most recent lab results Calcium 9.2 mg/dL (8.7-10.3) 02/14/22 08:21 02/14/22 08:21 02/14/22 08:21 Assessment and Plan Assessment: 1. Acute kidney injury, ATN, rule out urine retention. Blood pressure has been low. Currently maintained on IV fluids. patient was on IV vancomycin and now switched to daptomycin. Vancomycin level was 17.7 on 02/14/2022. Check urine analysis 2. Spinal abscess status post I&D, maintained on daptomycin. 3. Intolerance to vancomycin with significant GI symptoms currently discontinued. 4. History of ulcerative colitis status post colectomy and ileostomy 5. Intravascular volume depletion currently maintained on IV fluids Plan: continue with IV fluids Check UA Check ultrasound of the kidneys Check bladder scan rule out urine retention Check labs from today Thank you for the consultation. We'll continue to follow the patient with you during his hospitalization
--- NOTE | 2022-02-15 09:32 | P.PN ---
Subjective Progress Note Date: 02/15/22 Subjective: Patient seen and examined. States he's been feeling much better compared to yesterday. His ostomy output is improved. His blood pressure is getting better and stable with IV fluids. Denies any chest pain, shortness of breath, palpitations. No lightheadedness or dizziness. States he has been urinating adequately. Physical exam: Vital signs reviewed and stable. General: Nontoxic, no distress and appears stated age. Derm: Skin warm and dry, normal coloration for ethnicity. Dressing to lumbar region of the back is clean, dry, and intact with no signs of bleeding or drainage. Head: Atraumatic, normocephalic and symmetric. Eyes: EOMs intact, no lid lag, and anicteric sclera Mouth: no lip lesions, mucus membranes moist Cardiovascular: regular rate and rhythm with normal S1S2, systolic murmur, positive posterior tibial pulses bilaterally Lungs: Respirations even, regular, and unlabored on room air. Lungs CTA bilaterally, no rhonchi, no rales, no wheezing, and no accessory muscle usage. Abdominal: soft, nontender to palpation, no guarding, no appreciable organomegaly. Ileostomy right lower quadrant. Ext: ROM intact. No gross muscle atrophy, no edema, no contractures Psych: Alert and oriented to person, place, time, and situation. Appropriate and pleasant affect. Assessment and Plan of Care: Asymptomatic hypotension- improved Continue IV fluids for now We'll hold his lisinopril dose for now Status post incision and drainage of superficial back incisional abscess -Management per primary admitting orthospine surgery team including DVT prophylaxis, pain management, postoperative dressing change, and PT/OT. -Patient currently on DVT prophylaxis with heparin -Patient switched to IV daptomycin yesterday. -Infectious disease following. Acute postoperative blood loss anemia, expected finding and stable. LINA: Morning pending Continue IV fluids Urine lytes pending Nephrology consultation Hypertension -Currently borderline hypotensive History of PFO, no longer on anticoagulation. History of CVA, no residual deficits -Strongly encourage patient that he will need to follow up with tumbling barrel painter, Dr. Ventura to discuss/evaluate PFO and need for lifelong anticoagulation vs closure -DVT prophylaxis currently with heparin. Anxiety -Continue daily medication regimen with trazodone and duloxetine. History of Ulcerative colitis with ileostomy in place -Ostomy care as needed. Objective - Vital Signs Vital signs: Vital Signs Temp 98.2 F 02/15/22 02:00 Pulse 78 02/15/22 02:00 Resp 16 02/15/22 02:00 BP 99/64 02/15/22 05:25 Pulse Ox 98 02/15/22 02:00 FiO2 Intake & Output 02/14/22 02/15/22 02/15/22 18:59 06:59 18:59 Intake Total 3550 300 Output Total 650 Balance 2900 300 Intake: Intake, IV Titration 3050 Amount DAPTOmycin 500 mg In 50 Sodium Chloride 0.9% 50 ml @ 100 mls/hr IVPB Q24H [facility] Rx#:[id number] Lactated Ringers 1,000 ml 700 @ 100 mls/hr IV .Q10H [facility] Rx#:[id number] Lactated Ringers 1,000 ml 300 @ 150 mls/hr IV .Q6H40M [facility] Rx#:[id number] Lactated Ringers 1,000 ml 1000 @ 999 mls/hr IV .Q1H1M [facility] Rx#:[id number] Lactated Ringers 500 ml @ 500 999 mls/hr IV .Q31M [facility] Rx#:[id number] Sodium Chloride 0.9% 500 500 ml 500 ml @ 999 mls/hr IV .Q31M [facility] Rx#:[id number] Oral 500 300 Output: Urine 50 Stool 600 Other: Voiding Method Toilet Urinal # Voids 4 - Labs CBC & Chem 7: 02/14/22 08:21 02/14/22 08:21 Labs: Abnormal Lab Results - Last 24 Hours (Table) 02/14/22 02/14/22 Range/Units 08:21 08:21 WBC 10.81 H (4.50-10.00) X 10*3/uL Hgb 12.8 L (13.0-17.0) g/dL MCHC 31.2 L (32.0-37.0) g/dL Neutrophils # 9.10 H (1.80-7.70) X 10*3/uL Lymphocytes # 0.62 L (0.90-5.00) X 10*3/uL Creatinine 1.7 H (0.6-1.5) mg/dL Est GFR (CKD-EPI)AfAm 51.8 L (60.0-200.0) Est GFR (CKD-EPI)NonAf 44.7 L (60.0-200.0) BUN/Creatinine Ratio 7.82 L (12.00-20.00) Ratio Glucose 120 H (70-110) mg/dL Microbiology - Last 24 Hours (Table) 02/12/22 09:49 Anaerobic Culture - Preliminary Back 02/12/22 09:50 Anaerobic Culture - Preliminary Back 02/12/22 09:49 Anaerobic Culture - Preliminary Back 02/12/22 09:49 Gram Stain - Final Back Wound Culture - Final 02/12/22 09:50 Gram Stain - Final Back Wound Culture - Final 02/12/22 09:49 Gram Stain - Preliminary Back Tissue Culture - Preliminary 02/12/22 12:03 Blood Culture - Preliminary Blood No Growth after 48 hours
[2022-02-15] MEDS: DULoxetine HCL 30 MG CAPSULE.DR PO SCH (09:49)
[2022-02-15] MEDS: ACETAMINOPHEN TAB 500 MG TAB PO SCH ×4 (09:49→20:57)
--- NOTE | 2022-02-15 11:01 | P.PN ---
Subjective Progress Note Date: 02/15/22 Principal diagnosis: Status post I&D superficial incisional back Patient was evaluated today at bedside, he is resting in his hospital bed. Patient is feeling a lot better today. Nephrology is now following patient. Patient notes minimal discomfort in the back at this time. Currently denies any headaches, lightheadedness, shortness of breath, chest pain, nausea vomiting, fe pricila or chills. Objective - Vital Signs Vital signs: Vital Signs Temp 98.4 F 02/15/22 08:00 Pulse 63 02/15/22 08:00 Resp 18 02/15/22 08:00 BP 103/66 02/15/22 08:00 Pulse Ox 100 02/15/22 08:00 FiO2 Intake & Output 02/14/22 02/15/22 02/15/22 18:59 06:59 18:59 Intake Total 3550 300 Output Total 650 Balance 2900 300 Intake: Intake, IV Titration 3050 Amount DAPTOmycin 500 mg In 50 Sodium Chloride 0.9% 50 ml @ 100 mls/hr IVPB Q24H [facility] Rx#:[id number] Lactated Ringers 1,000 ml 700 @ 100 mls/hr IV .Q10H [facility]O Rx#:[id number] Lactated Ringers 1,000 ml 300 @ 150 mls/hr IV .Q6H40M [facility]O Rx#:[id number] Lactated Ringers 1,000 ml 1000 @ 999 mls/hr IV .Q1H1M [facility]O Rx#:[id number] Lactated Ringers 500 ml @ 500 999 mls/hr IV .Q31M ONE Rx#:[id number] Sodium Chloride 0.9% 500 500 ml 500 ml @ 999 mls/hr IV .Q31M ONE Rx#:[id number] Oral 500 300 Output: Urine 50 Stool 600 Other: Voiding Method Toilet Urinal # Voids 4 - Exam Gen: AOx3, NAD VSS stable at this time Integument: Postoperative dressing is a good position and condition, small amount of serosagninus drainage noted when changing dressing Palpation: Mild tenderness to palpation on the medial and lateral borders of the incision ROM: For range of motion all major muscle groups of the bilateral upper and lower extremities Sensory Exam: Senory exam to light touch is intact C5-T1 Senosry exam to light touch is intact L2-S1 Motor: 55 strength appreciated in the bilateral upper extremities with shoulder abduction, forward elevation, elbow extension, elbow flexion, wrist extension, wrist flexion, strapper and buffer 55 strength appreciated in the bilateral lower extremities with hip flexion, knee extension, knee flexion, plantar flexion, dorsiflexion, EHL, FHL Reflexes: 2/4 in all UE and LE Negative Brandan's bilaterally Negative Babinski bilaterally Negative clonus bilaterally - Labs CBC & Chem 7: 02/14/22 08:21 02/14/22 08:21 Labs: Abnormal Lab Results - Last 24 Hours (Table) 02/14/22 02/14/22 Range/Units 08:21 08:21 WBC 10.81 H (4.50-10.00) X 10*3/uL Hgb 12.8 L (13.0-17.0) g/dL MCHC 31.2 L (32.0-37.0) g/dL Neutrophils # 9.10 H (1.80-7.70) X 10*3/uL Lymphocytes # 0.62 L (0.90-5.00) X 10*3/uL Creatinine 1.7 H (0.6-1.5) mg/dL Est GFR (CKD-EPI)AfAm 51.8 L (60.0-200.0) Est GFR (CKD-EPI)NonAf 44.7 L (60.0-200.0) BUN/Creatinine Ratio 7.82 L (12.00-20.00) Ratio Glucose 120 H (70-110) mg/dL Microbiology - Last 24 Hours (Table) 02/12/22 09:49 Gram Stain - Preliminary Back Tissue Culture - Preliminary 02/12/22 09:49 Anaerobic Culture - Preliminary Back 02/12/22 09:50 Anaerobic Culture - Preliminary Back 02/12/22 09:49 Anaerobic Culture - Preliminary Back 02/12/22 09:49 Gram Stain - Final Back Wound Culture - Final 02/12/22 09:50 Gram Stain - Final Back Wound Culture - Final 02/12/22 12:03 Blood Culture - Preliminary Blood No Growth after 48 hours Assessment and Plan Assessment: Postoperative day #3 status post I&D superficial incisional back abscess Plan: Pain control, patient will continue with current oral medication DVT prophylaxis, continue subcu medication during hospital stay Wound care, we foam dressing in place Activity level restrictions were discussed, this to include no lifting, bending, twisting over 10 pounds Other medical speciality recommendations Discharge plan: Discussed with patient and today at bedside I would like to keep in hospital until Wednesday. His BP is improving, but still on the lower end. Awaiting final culture/sensitivity results for outpatient antibiotic recommendations. Reassess on 02/16/2022 Time with Patient: Less than 30
--- NOTE | 2022-02-15 11:13 | US ---
EXAMINATION TYPE: US kidneys/renal and bladder DATE OF EXAM: 02/15/2022 COMPARISON: NONE CLINICAL HISTORY: lina. LINA EXAM MEASUREMENTS: Right Kidney: 12.0 x 6.4 x 6.0 cm Left Kidney: 11.8 x 6.2 x 4.8 cm Right Kidney: no evidence of hydronephrosis or mass Left Kidney: no evidence of hydronephrosis or mass Bladder: wnl Bilateral Jets seen: no There is no evidence for hydronephrosis at this point in time. No nephrolithiasis is seen. No elaine s are identified. The urinary bladder is anechoic. Bilateral ureteral jets are seen. IMPRESSION: No evidence of obstructive uropathy.
[2022-02-15 13:20] LABS: Basophils # (A) 0.01 X 10*3/uL (0.00-0.10); Basophils % (A) 0.2 %; Eosinophils # (A) 0.35 X 10*3/uL (0.04-0.35); Eosinophils % (A) 5.8 %; HCT 38.4 % (39.6-50.0); HGB 11.9 g/dL (13.0-17.0); Immature Grans, Automated 0.3 %; Lymphocytes # (A) 1.04 X 10*3/uL (0.90-5.00); Lymphocytes % (A) 17.1 %; MCH 28.1 pg (27.0-32.0); MCV 90.6 fL (80.0-97.0); Mean Platelet Volume 10.4 fL (9.5-12.2); Monocytes # (A) 0.57 X 10*3/uL (0.20-1.00); Monocytes % (A) 9.4 %; NRBC Per 100 WBC 0 /100 WBCS (0.0-0.0); Neutrophils # (A) 4.08 X 10*3/uL (1.80-7.70); Neutrophils % (A) 67.2 %; Platelet Count 145 X 10*3/uL (140-440); RBC 4.24 X 10*6/uL (4.40-5.60); WBC 6.07 X 10*3/uL (4.50-10.00)
[2022-02-15 13:21] LABS: RBC Morphology NORMAL
[2022-02-15 13:28] LABS: African American GFR (CKD) 18.9 (60.0-200.0); BUN/Creat Ratio 4.9 Ratio (12.00-20.00); Blood Urea Nitrogen 19.2 mg/dL (9.0-27.0); Calcium 8.7 mg/dL (8.7-10.3); Carbon Dioxide 17.6 mmol/L (20.0-27.5); Non-African American GFR(CKD) 16.3 (60.0-200.0)
[2022-02-15 15:01] LABS: ABG HCO3 24 mmol/L (21-25); ABG PCO2 38 mmHg (35-45); ABG PO2 76 mmHg (83-108); ABG TCO2 25 mmol/L (19-24); Allen Test Performed? Yes
[2022-02-15] MEDS: DAPTOmycin 500 MG in SODIUM CHLORIDE 0.9% 50 ML IVPB SCH (16:20)
[2022-02-15 16:27] LABS: Potassium 3.7 mmol/L (3.5-5.1)
[2022-02-15] MEDS: ONDANSETRON 4 MG/2 ML VIAL IVP PRN (20:57)
[2022-02-15] MEDS: traZODone HCL 100 MG TAB PO SCH (22:42)
[2022-02-16] MEDS: ACETAMINOPHEN TAB 500 MG TAB PO SCH ×4 (05:39→23:45)
[2022-02-16] MEDS: LACTATED RINGERS 1,000 ML IV SCH ×4 (06:17→23:45)
[2022-02-16 06:34] LABS: Potassium 3.8 mmol/L (3.5-5.1)
--- NOTE | 2022-02-16 07:59 | P.PN ---
Subjective Progress Note Date: 02/15/22 Principal diagnosis: Lower back abscess and cellulitis Patient is a 56-year-old male with a recent history of T12-L4 decompression and fusion patient developing increasing swelling to the lumbar spine incision area patient mention the area becoming swollen and did have drainage of the area subsequently patient was taken to the OR with I&D of incisional back abscess debridement of the skin soft tissue and muscle and complex closure there was no mention of any extension down to the hardware. On today's evaluation that is 02/15/2022, the patient continues to be afebrile, the patient lower back pain is currently controlled, the patient denies having any chest pain or shortness of breath or cough patient denies any nausea or vomiting no abdominal pain Objective - Vital Signs Vital signs: Vital Signs Temp 98.4 F 02/15/22 08:00 Pulse 63 02/15/22 08:00 Resp 18 02/15/22 08:00 BP 103/66 02/15/22 08:00 Pulse Ox 100 02/15/22 08:00 FiO2 Intake & Output 02/14/22 02/15/22 02/15/22 18:59 06:59 18:59 Intake Total 3550 300 Output Total 650 Balance 2900 300 Intake: Intake, IV Titration 3050 Amount DAPTOmycin 500 mg In 50 Sodium Chloride 0.9% 50 ml @ 100 mls/hr IVPB Q24H [facility] Rx#:[id number] Lactated Ringers 1,000 ml 700 @ 100 mls/hr IV .Q10H [facility]O Rx#:[id number] Lactated Ringers 1,000 ml 300 @ 150 mls/hr IV .Q6H40M [facility]O Rx#:[id number] Lactated Ringers 1,000 ml 1000 @ 999 mls/hr IV .Q1H1M [facility]O Rx#:[id number] Lactated Ringers 500 ml @ 500 999 mls/hr IV .Q31M ONE Rx#:[id number] Sodium Chloride 0.9% 500 500 ml 500 ml @ 999 mls/hr IV .Q31M ONE Rx#:[id number] Oral 500 300 Output: Urine 50 Stool 600 Other: Voiding Method Toilet Urinal # Voids 4 - Exam GENERAL DESCRIPTION: Middle-aged male lying in bed in no distress RESPIRATORY SYSTEM: Unlabored breathing , decreased breath sounds at bases HEART: S1 S2 regular rate and rhythm , ABDOMEN: Soft , no tenderness EXTREMITIES: No edema feet - Labs CBC & Chem 7: 02/15/22 07:57 02/16/22 06:00 Labs: Abnormal Lab Results - Last 24 Hours (Table) 02/14/22 02/15/22 02/15/22 Range/Units 16:30 07:57 07:57 RBC 4.24 L (4.40-5.60) X 10*6/uL Hgb 11.9 L (13.0-17.0) g/dL Hct 38.4 L (39.6-50.0) % MCHC 31.0 L (32.0-37.0) g/dL Carbon Dioxide 17.6 L (20.0-27.5) mmol/L Creatinine 3.9 H (0.6-1.5) mg/dL Est GFR (CKD-EPI)AfAm 18.9 L (60.0-200.0) Est GFR (CKD-EPI)NonAf 16.3 L (60.0-200.0) BUN/Creatinine Ratio 4.90 L (12.00-20.00) Ratio Ur Random Sodium <20 L (40-220) mmol/L Microbiology - Last 24 Hours (Table) 02/12/22 09:49 Gram Stain - Preliminary Back Tissue Culture - Preliminary 02/12/22 09:49 Anaerobic Culture - Preliminary Back 02/12/22 09:50 Anaerobic Culture - Preliminary Back 02/12/22 09:49 Anaerobic Culture - Preliminary Back 02/12/22 09:49 Gram Stain - Final Back Wound Culture - Final 02/12/22 09:50 Gram Stain - Final Back Wound Culture - Final 02/12/22 12:03 Blood Culture - Preliminary Blood No Growth after 48 hours Assessment and Plan (1) Incisional abscess Current Visit: Yes Status: Acute Code(s): T81.49XA - INFECTION FOLLOWING A PROCEDURE, OTHER SURGICAL SITE, INIT SNOMED Code(s): 45270863 Plan: 1patient with a superficial thoracolumbar spine incision infection with an abscess s/p drainage with no evidence of any extension down to the hardware in this patient not running any fever and did not have any elevated white count clinically not behaving as a deep infection either and will cover for gram- positive skin naomi to the likely pathogen. 2blood cultures and local cultures are so far negative 3patient currently being treated with daptomycin did have significant worsening of his kidney function has been monitored by nephrology Time with Patient: Less than 30
[2022-02-16] MEDS ORDERED: MIDODRINE 5 MG TAB PO STA (08:58)
[2022-02-16] MEDS: HEPARIN SODIUM,PORCINE/PF 5,000 UNIT/0.5 ML SYRINGE SQ SCH ×3 (09:05→23:40)
[2022-02-16] MEDS: DULoxetine HCL 30 MG CAPSULE.DR PO SCH (09:06)
--- NOTE | 2022-02-16 09:43 | P.PN ---
Subjective Patient is seen for follow-up for acute kidney injury. Patient was admitted with drainage from a recent incisional abscess. He is currently maintained on IV daptomycin. Patient was initially on vancomycin this is now discontinued. Blood pressure has been low. Patient is maintained on IV fluids. Patient reports good urine output Serum creatinine however has been increasing. It is up to 4.6 today. Ultrasound shows no evidence of hydronephrosis.. Blood pressure has been low. Patient states that she wants to go home today and will not stay overnight. He states he will come back for follow-up as outpatient and check labs as outpatient as well. Objective - Vital Signs Vital signs: Vital Signs Temp 98.2 F 02/16/22 01:28 Pulse 57 L 02/16/22 01:28 Resp 20 02/16/22 01:28 BP 100/63 02/16/22 01:28 Pulse Ox 99 02/16/22 01:28 FiO2 Intake & Output 02/15/22 02/16/22 02/16/22 18:59 06:59 18:59 Intake Total 1700 Output Total 300 Balance 1400 Intake: Intake, IV Titration 850 Amount DAPTOmycin 500 mg In 50 Sodium Chloride 0.9% 50 ml @ 100 mls/hr IVPB Q24H [facility] Rx#:[id number] Lactated Ringers 1,000 ml 800 @ 150 mls/hr IV .Q6H40M [facility] Rx#:[id number] Oral 850 Output: Stool 300 Other: Voiding Method Toilet Toilet Toilet Urinal Urinal Urinal # Voids 3 - Exam Patient is awake, comfortable, not in any acute distress Alert oriented 3 Examination of the heart S1 and S2 Examination of the lungs bilateral breath sounds are heard Abdomen is soft nontender Examination lower extremities shows no evidence of edema PRODUCTION ENGINEER TRACK exam grossly intact - Labs CBC & Chem 7: 02/15/22 07:57 02/16/22 06:00 Labs: Abnormal Lab Results - Last 24 Hours (Table) 02/14/22 02/15/22 02/15/22 Range/Units 16:30 07:57 07:57 RBC 4.24 L (4.40-5.60) X 10*6/uL Hgb 11.9 L (13.0-17.0) g/dL Hct 38.4 L (39.6-50.0) % MCHC 31.0 L (32.0-37.0) g/dL ABG pO2 (83-108) mmHg ABG Total CO2 (19-24) mmol/L Sodium (137-145) mmol/L Chloride (98-107) mmol/L Carbon Dioxide 17.6 L (20.0-27.5) mmol/L Creatinine 3.9 H (0.6-1.5) mg/dL Est GFR (CKD-EPI)AfAm 18.9 L (60.0-200.0) Est GFR (CKD-EPI)NonAf 16.3 L (60.0-200.0) BUN/Creatinine Ratio 4.90 L (12.00-20.00) Ratio Ur Random Sodium <20 L (40-220) mmol/L 02/15/22 02/15/22 02/15/22 Range/Units 14:49 15:50 23:37 RBC (4.40-5.60) X 10*6/uL Hgb (13.0-17.0) g/dL Hct (39.6-50.0) % MCHC (32.0-37.0) g/dL ABG pO2 76 L (83-108) mmHg ABG Total CO2 25 H (19-24) mmol/L Sodium 136 L 135 L (137-145) mmol/L Chloride (98-107) mmol/L Carbon Dioxide (20.0-27.5) mmol/L Creatinine (0.6-1.5) mg/dL Est GFR (CKD-EPI)AfAm (60.0-200.0) Est GFR (CKD-EPI)NonAf (60.0-200.0) BUN/Creatinine Ratio (12.00-20.00) Ratio Ur Random Sodium (40-220) mmol/L 02/16/22 Range/Units 06:00 RBC (4.40-5.60) X 10*6/uL Hgb (13.0-17.0) g/dL Hct (39.6-50.0) % MCHC (32.0-37.0) g/dL ABG pO2 (83-108) mmHg ABG Total CO2 (19-24) mmol/L Sodium (137-145) mmol/L Chloride 112 H (98-107) mmol/L Carbon Dioxide (20.0-27.5) mmol/L Creatinine 4.62 H (0.6-1.5) mg/dL Est GFR (CKD-EPI)AfAm (60.0-200.0) Est GFR (CKD-EPI)NonAf (60.0-200.0) BUN/Creatinine Ratio (12.00-20.00) Ratio Ur Random Sodium (40-220) mmol/L Microbiology - Last 24 Hours (Table) 02/12/22 09:49 Gram Stain - Final Back Tissue Culture - Final 02/12/22 12:03 Blood Culture - Preliminary Blood No Growth after 72 hours Assessment and Plan Assessment: 1. Acute kidney injury, ATN, Blood pressure has been low. Currently maintained on IV fluids. patient was on IV vancomycin and now switched to daptomycin. Vancomycin level was 17.7 on 02/14/2022. Check urine analysis. Possible acute interstitial nephritis. 2. Spinal abscess status post I&D, maintained on daptomycin. 3. Intolerance to vancomycin with significant GI symptoms currently discontinued. 4. History of ulcerative colitis status post colectomy and ileostomy 5. Intravascular volume depletion currently maintained on IV fluids Plan: Continue IV fluids Add midodrine as blood pressure remains low Patient is advised that he should not be discharged however if he does end up getting discharge patient will need follow-up as outpatient in 1-2 days with repeat labs to be done in about 2 days post discharge. Patient is advised to avoid use of any non-'s steroidal anti-inflammatory agents. He should continue with the midodrine at 5 mg twice a day if systolic blood pressure remains below 1 15 mmHg. Urine analysis ordered yesterday and has not been sent out. Discussed with nursing staff.
[2022-02-16 11:07] LABS: Appearance,Urine Clear (Clear); Bilirubin,Urine Negative (Negative); Blood,Urine Negative (Negative); Color,Urine Colorless; Glucose,Urine (UA) Negative (Negative); Ketones,Urine Negative (Negative); Leukocyte Esterase,Urine Moderate (Negative); Mucus,Urine Rare /hpf; Nitrite,Urine Negative (Negative); Protein,Urine Negative (Negative); RBC,Urine 1 /hpf (0-5); Specific Gravity,Urine 1.005 (1.001-1.035); Squamous Epithelial Cell,Urine <1 /hpf (0-4); Urobilinogen,Urine <2.0 mg/dL (<2.0); WBC,Urine 10 /hpf (0-5)
--- NOTE | 2022-02-16 12:26 | P.PN ---
Subjective Progress Note Date: 02/16/22 Principal diagnosis: Status post I&D superficial incisional back Patient was evaluated today at bedside, he is resting in his hospital bed. Patient continues to feel a lot better overall. His creatinine is continued elevate, nephrology has been their recommendations. Still adamant about being discharged home today, he does not be in the hospital any longer. Nephrology recommendations mention today metabolic profile be drawn in the next day or 2 for recheck of his creatinine. I spoke with infectious disease regarding outpatient antibiotic. Currently denies any headaches, lightheadedness, shortness of breath, chest pain, nausea vomiting, fever or chills. Objective - Vital Signs Vital signs: Vital Signs Temp 98.3 F 02/16/22 08:00 Pulse 54 L 02/16/22 08:00 Resp 18 02/16/22 08:00 BP 108/68 02/16/22 08:00 Pulse Ox 99 02/16/22 08:00 FiO2 Intake & Output 02/15/22 02/16/22 02/16/22 18:59 06:59 18:59 Intake Total 1700 Output Total 300 100 Balance 1400 -100 Intake: Intake, IV Titration 850 Amount DAPTOmycin 500 mg In 50 Sodium Chloride 0.9% 50 ml @ 100 mls/hr IVPB Q24H [facility] Rx#:[id number] Lactated Ringers 1,000 ml 800 @ 150 mls/hr IV .Q6H40M [facility] Rx#:[id number] Oral 850 Output: Urine 100 Stool 300 Other: Voiding Method Toilet Toilet Toilet Urinal Urinal Urinal # Voids 3 - Exam Gen: AOx3, NAD VSS stable at this time Integument: Postoperative dressing is a good position and condition, small amount of se rosagninus drainage noted when changing dressing Palpation: Mild tenderness to palpation on the medial and lateral borders of the incision ROM: For range of motion all major muscle groups of the bilateral upper and lower extremities Sensory Exam: Senory exam to light touch is intact C5-T1 Senosry exam to light touch is intact L2-S1 Motor: 55 strength appreciated in the bilateral upper extremities with shoulder abduction, forward elevation, elbow extension, elbow flexion, wrist extension, w rist flexion, data power consultant 55 strength appreciated in the bilateral lower extremities with hip flexion, knee extension, knee flexion, plantar flexion, dorsiflexion, EHL, FHL Reflexes: 2/4 in all UE and LE Negative Brandan's bilaterally Negative Babinski bilaterally Negative clonus bilaterally - Labs CBC & Chem 7: 02/15/22 07:57 02/16/22 06:00 Labs: Abnormal Lab Results - Last 24 Hours (Table) 02/14/22 02/15/22 02/15/22 Range/Units 16:30 07:57 07:57 RBC 4.24 L (4.40-5.60) X 10*6/uL Hgb 11.9 L (13.0-17.0) g/dL Hct 38.4 L (39.6-50.0) % MCHC 31.0 L (32.0-37.0) g/dL ABG pO2 (83-108) mmHg ABG Total CO2 (19-24) mmol/L Sodium (137-145) mmol/L Chloride (98-107) mmol/L Carbon Dioxide 17.6 L (20.0-27.5) mmol/L Creatinine 3.9 H (0.6-1.5) mg/dL Est GFR (CKD-EPI)AfAm 18.9 L (60.0-200.0) Est GFR (CKD-EPI)NonAf 16.3 L (60.0-200.0) BUN/Creatinine Ratio 4.90 L (12.00-20.00) Ratio Ur Leukocyte Esterase (Negative) Urine WBC (0-5) /hpf Urine Mucus (None) /hpf Ur Random Sodium <20 L (40-220) mmol/L 02/15/22 02/15/22 02/15/22 Range/Units 14:49 15:50 23:37 RBC (4.40-5.60) X 10*6/uL Hgb (13.0-17.0) g/dL Hct (39.6-50.0) % MCHC (32.0-37.0) g/dL ABG pO2 76 L (83-108) mmHg ABG Total CO2 25 H (19-24) mmol/L Sodium 136 L 135 L (137-145) mmol/L Chloride (98-107) mmol/L Carbon Dioxide (20.0-27.5) mmol/L Creatinine (0.6-1.5) mg/dL Est GFR (CKD-EPI)AfAm (60.0-200.0) Est GFR (CKD-EPI)NonAf (60.0-200.0) BUN/Creatinine Ratio (12.00-20.00) Ratio Ur Leukocyte Esterase (Negative) Urine WBC (0-5) /hpf Urine Mucus (None) /hpf Ur Random Sodium (40-220) mmol/L 02/16/22 02/16/22 Range/Units 06:00 10:45 RBC (4.40-5.60) X 10*6/uL Hgb (13.0-17.0) g/dL Hct (39.6-50.0) % MCHC (32.0-37.0) g/dL ABG pO2 (83-108) mmHg ABG Total CO2 (19-24) mmol/L Sodium (137-145) mmol/L Chloride 112 H (98-107) mmol/L Carbon Dioxide (20.0-27.5) mmol/L Creatinine 4.62 H (0.6-1.5) mg/dL Est GFR (CKD-EPI)AfAm (60.0-200.0) Est GFR (CKD-EPI)NonAf (60.0-200.0) BUN/Creatinine Ratio (12.00-20.00) Ratio Ur Leukocyte Esterase Moderate H (Negative) Urine WBC 10 H (0-5) /hpf Urine Mucus Rare H (None) /hpf Ur Random Sodium (40-220) mmol/L Microbiology - Last 24 Hours (Table) 02/12/22 09:49 Anaerobic Culture - Final Back 02/12/22 09:50 Anaerobic Culture - Final Back 02/12/22 09:49 Anaerobic Culture - Final Back 02/12/22 09:49 Gram Stain - Final Back Tissue Culture - Final 02/12/22 12:03 Blood Culture - Preliminary Blood No Growth after 72 hours Assessment and Plan Assessment: Postoperative day #4 status post I&D superficial incisional back abscess Plan: Pain control, will resume Davison 10 mg/325 mg Wound care, discussed dressing changes along with showering instructions Activity level restrictions were discussed, this to include no lifting, bending, twisting over 10 pounds Metabolic profile prescription to be done in the outpatient setting for recheck creatinine and follow-up with neurology Keflex 500mg qid for 10 days for outpatient antibiotics Other medical speciality recommendations Discharge plan: plan for discharge home today Time with Patient: Less than 30
[2022-02-16] MEDS ORDERED: diazePAM 5 MG TAB PO PRN (13:07)
[2022-02-16] MEDS: diazePAM 5 MG TAB PO PRN (13:14)
[2022-02-16] MEDS: MIDODRINE 5 MG TAB PO SCH ×2 (13:14→17:01)
[2022-02-16 16:02] LABS: Potassium 4.2 mmol/L (3.5-5.1)
--- NOTE | 2022-02-16 19:14 | P.PN ---
Subjective Progress Note Date: 02/16/22 Hospital course: Patient is a very pleasant 56-year-old male with a past medical history of hypertension, CVA, PFO no longer on anticoagulation reporting he took himself off of anticoagulation when he developed complications with his ulcerative colitis and never followed back up with cardiology for PFO closure or resumption of anticoagulant as this was in [place], ulcerative colitis with ileostomy, anxiety, and spinal stenosis status post T12 through L4 decompression and fusion.. Patient is currently admitted under orthospine surgical team status post incision and drainage of superficial back incisional abscess. We have been consulted for continued medical management throughout patient's hospitalization. Physical exam: Patient seen and fully evaluated at bedside this morning. patient very adamant about going home. Patient requesting discharge. Patient was educated on the severity of acute kidney injury and need for close monitoring. patient remains on daptomycin 500 mg. abdominal discussion with patient regarding hypotension and elevated renal function and current unstable for discharge. Discussed concerns with orthostatic to call team highly recommend patient to stay in hospital for continued close monitoring and management. Vital signs reviewed and stable. General: Nontoxic, no distress and appears stated age. Derm: Skin warm and dry, normal coloration for ethnicity. Dressing to lumbar region of the back is clean, dry, and intact with no signs of bleeding or drainage. Head: Atraumatic, normocephalic and symmetric. Eyes: EOMs intact, no lid lag, and anicteric sclera Mouth: no lip lesions, mucus membranes moist Cardiovascular: regular rate and rhythm with normal S1S2, systolic murmur, positive posterior tibial pulses bilaterally, and cap refill < 2 seconds. Lungs: Respirations even, regular, and unlabored on room air. Lungs CTA bilater ally, no rhonchi, no rales, no wheezing, and no accessory muscle usage. Abdominal: soft, nontender to palpation, no guarding, no appreciable organomegaly. Ileostomy right lower quadrant. Ext: ROM intact. No gross muscle atrophy, no edema, no contractures Neuro: Speech clear, face symmetrical and CN II-XII grossly intact with no noted focal neuro deficits Psych: Alert and oriented to person, place, time, and situation. Appropriate and pleasant affect. Assessment and Plan of Care: Status post incision and drainage of superficial back incisional abscess -Management per primary admitting orthospine surgery team including DVT prophylaxis, pain management, postoperative dressing change, and PT/OT. -Patient currently on DVT prophylaxis with heparin -Continuation of IV antibiotics with vancomycin pending final culture and sensitivity reports. -Infectious disease following. Acute kidney injury -creatinine 4.62 and GFR of 13 with baseline creatinine of 0.79. -vancomycin was discontinued and patient was started on daptomycin -Nephrology following -urinalysis negative for infection. Hypotension Intravascular dehydration -On 02/14/22 patient had significant drop in blood pressure 70's systolic. Patient received aggressive IV fluid hydration. -nephrology started patient on Midodrine. Acute postoperative blood loss anemia, expected finding and stable. -Hemoglobin 12.3. Hyperchloremia -0.9% normal saline infusion discontinued at this time. Hypertension -Monitor vital signs and we will substitute patient's home medication quinapril with lisinopril based on hospital availability. History of PFO, no longer on anticoagulation. History of CVA, no residual deficits -Strongly encourage patient that he will need to follow up with real estate services coordinator, Dr. Ventura to discuss/evaluate PFO and need for lifelong anticoagulation vs closure -DVT prophylaxis currently with heparin. Anxiety -Continue daily medication regimen with trazodone and duloxetine. History of Ulcerative colitis with ileostomy in place -Ostomy care as needed. Thank you for allowing us to participate in the care of this pleasant patient. Do not hesitate to contact us with questions. Someone can be reached from the [facility] hospitalist group all hours of the day at [phone] or via [employer] serve. Objective - Vital Signs Vital signs: Vital Signs Temp 98.2 F 02/16/22 01:28 Pulse 57 L 02/16/22 01:28 Resp 20 02/16/22 01:28 BP 100/63 02/16/22 01:28 Pulse Ox 99 02/16/22 01:28 FiO2 Intake & Output 02/15/22 02/16/22 02/16/22 18:59 06:59 18:59 Intake Total 1700 Output Total 300 Balance 1400 Intake: Intake, IV Titration 850 Amount DAPTOmycin 500 mg In 50 Sodium Chloride 0.9% 50 ml @ 100 mls/hr IVPB Q24H [facility]O Rx#:[id number] Lactated Ringers 1,000 ml 800 @ 150 mls/hr IV .[id number] [facility]O Rx#:[id number] Oral 850 Output: Stool 300 Other: Voiding Method Toilet Toilet Urinal Urinal # Voids 3 - Labs CBC & Chem 7: 02/15/22 07:57 02/16/22 15:32 Labs: Abnormal Lab Results - Last 24 Hours (Table) 02/14/22 02/15/22 02/15/22 Range/Units 16:30 07:57 07:57 RBC 4.24 L (4.40-5.60) X 10*6/uL Hgb 11.9 L (13.0-17.0) g/dL Hct 38.4 L (39.6-50.0) % MCHC 31.0 L (32.0-37.0) g/dL ABG pO2 (83-108) mmHg ABG Total CO2 (19-24) mmol/L Sodium (137-145) mmol/L Chloride (98-107) mmol/L Carbon Dioxide 17.6 L (20.0-27.5) mmol/L Creatinine 3.9 H (0.6-1.5) mg/dL Est GFR (CKD-EPI)AfAm 18.9 L (60.0-200.0) Est GFR (CKD-EPI)NonAf 16.3 L (60.0-200.0) BUN/Creatinine Ratio 4.90 L (12.00-20.00) Ratio Ur Random Sodium <20 L (40-220) mmol/L 02/15/22 02/15/22 02/15/22 Range/Units 14:49 15:50 23:37 RBC (4.40-5.60) X 10*6/uL Hgb (13.0-17.0) g/dL Hct (39.6-50.0) % MCHC (32.0-37.0) g/dL ABG pO2 76 L (83-108) mmHg ABG Total CO2 25 H (19-24) mmol/L Sodium 136 L 135 L (137-145) mmol/L Chloride (98-107) mmol/L Carbon Dioxide (20.0-27.5) mmol/L Creatinine (0.6-1.5) mg/dL Est GFR (CKD-EPI)AfAm (60.0-200.0) Est GFR (CKD-EPI)NonAf (60.0-200.0) BUN/Creatinine Ratio (12.00-20.00) Ratio Ur Random Sodium (40-220) mmol/L 02/16/22 Range/Units 06:00 RBC (4.40-5.60) X 10*6/uL Hgb (13.0-17.0) g/dL Hct (39.6-50.0) % MCHC (32.0-37.0) g/dL ABG pO2 (83-108) mmHg ABG Total CO2 (19-24) mmol/L Sodium (137-145) mmol/L Chloride 112 H (98-107) mmol/L Carbon Dioxide (20.0-27.5) mmol/L Creatinine 4.62 H (0.6-1.5) mg/dL Est GFR (CKD-EPI)AfAm (60.0-200.0) Est GFR (CKD-EPI)NonAf (60.0-200.0) BUN/Creatinine Ratio (12.00-20.00) Ratio Ur Random Sodium (40-220) mmol/L Microbiology - Last 24 Hours (Table) 02/12/22 09:49 Gram Stain - Final Back Tissue Culture - Final 02/12/22 12:03 Blood Culture - Preliminary Blood No Growth after 72 hours
[2022-02-16] MEDS: traZODone HCL 100 MG TAB PO SCH (23:39)
[2022-02-17] MEDS: ACETAMINOPHEN TAB 500 MG TAB PO SCH ×4 (05:33→23:15)
[2022-02-17] MEDS: LACTATED RINGERS 1,000 ML IV SCH ×3 (05:34→18:22)
[2022-02-17] MEDS: MIDODRINE 5 MG TAB PO SCH ×3 (07:49→17:37)
[2022-02-17] MEDS: HEPARIN SODIUM,PORCINE/PF 5,000 UNIT/0.5 ML SYRINGE SQ SCH ×3 (07:53→23:15)
[2022-02-17] MEDS: DULoxetine HCL 30 MG CAPSULE.DR PO SCH (07:53)
[2022-02-17] MEDS: diazePAM 5 MG TAB PO PRN (07:53)
[2022-02-17 08:03] LABS: ALT 22 U/L (4-49); AST 33 U/L (17-59); African American GFR (CKD) 14 (>60 ml/min/1.73 sqM); Albumin 3.1 g/dL (3.5-5.0); Albumin/Globulin Ratio 1.1; Alkaline Phosphatase 84 U/L (38-126); Anion Gap 5 mmol/L; Blood Urea Nitrogen 27 mg/dL (9-20); Calcium 8.6 mg/dL (8.4-10.2); Carbon Dioxide 24 mmol/L (22-30); Chloride 111 mmol/L (98-107); Globulin 2.7 g/dL; Glucose 88 mg/dL (74-99); Non-African American GFR(CKD) 12 (>60 ml/min/1.73 sqM); Potassium 4.2 mmol/L (3.5-5.1); Sodium 140 mmol/L (137-145); Total Bilirubin 0.2 mg/dL (0.2-1.3); Total Protein 5.8 g/dL (6.3-8.2)
--- NOTE | 2022-02-17 08:37 | P.PN ---
Subjective Progress Note Date: 02/17/22 Hospital course: Patient is a very pleasant 56-year-old male with a past medical history of hypertension, CVA, PFO no longer on anticoagulation reporting he took himself off of anticoagulation when he developed complications with his ulcerative colitis and never followed back up with cardiology for PFO closure or resumption of anticoagulant as this was in [place], ulcerative colitis with ileostomy, anxiety, and spinal stenosis status post T12 through L4 decompression and fusion.. Patient is currently admitted under orthospine surgical team status post incision and drainage of superficial back incisional abscess. We have been consulted for continued medical management throughout patient's hospitalization. Patient was initially on IV antibiotic vancomycin pending culture results, however patient developed an acute kidney injury shortly after initiating vancomycin. Vancomycin was discontinued and patient was placed on daptomycin. Nephrology was consulted secondary to continued worsening renal function. Renal ultrasound was completed showing no evidence of hydronephrosis or mass in right or left kidney bladder normal findings with no evidence of obstructive uropathy. Blood and wound cultures showing no growth to date. Physical exam: Patient seen and fully evaluated at bedside this morning. Morning labs review plateauing of renal function with BUN of 27, creatinine 4.93, and GFR of 12. Updated patient that this is improvement as his creatinine was rapidly increasing over the past few days but has now stabilized. Patient denies having any complaints or concerns at this time. Vital signs reviewed and stable. General: Nontoxic, no distress and appears stated age. Derm: Skin warm and dry, normal coloration for ethnicity. Dressing to lumbar region of the back is clean, dry, and intact with no signs of bleeding or drainage. Head: Atraumatic, normocephalic and symmetric. Eyes: EOMs intact, no lid lag, and anicteric sclera Mouth: no lip lesions, mucus membranes moist Cardiovascular: regular rate and rhythm with normal S1S2, systolic murmur, positive posterior tibial pulses bilaterally, and cap refill < 2 seconds. Lungs: Respirations even, regular, and unlabored on room air. Lungs CTA bilaterally, no rhonchi, no rales, no wheezing, and no accessory muscle usage. Abdominal: soft, nontender to palpation, no guarding, no appreciable org anomegaly. Ileostomy right lower quadrant. Ext: ROM intact. No gross muscle atrophy, no edema, no contractures Neuro: Speech clear, face symmetrical and CN II-XII grossly intact with no noted focal neuro deficits Psych: Alert and oriented to person, place, time, and situation. Appropriate and pleasant affect. Assessment and Plan of Care: Status post incision and drainage of superficial back incisional abscess -Management per primary admitting orthospine surgery team including DVT prophylaxis, pain management, postoperative dressing change, and PT/OT. -Patient currently on DVT prophylaxis with heparin -Continuation of IV antibiotics with vancomycin pending final culture and sensitivity reports. -Infectious disease following. Acute kidney injury -creatinine 4.93, BUN 27, and GFR of 12 with baseline creatinine of 0.79. -Renal ultrasound revealing no evidence of hydronephrosis or mass in right or left kidney bladder normal findings with no evidence of obstructive uropathy -vancomycin was discontinued and patient was started on daptomycin -Nephrology following -urinalysis negative for infection. -Continue with IV fluid hydration Hypotension Intravascular dehydration -On 02/14/22 patient had significant drop in blood pressure 70's systolic. Patient received aggressive IV fluid hydration. -nephrology started patient on Midodrine. Acute postoperative blood loss anemia, expected finding and stable. -Hemoglobin 12.3. Hyperchloremia -0.9% normal saline infusion discontinued at this time. Hypertension -Monitor vital signs and we will substitute patient's home medication quinapril with lisinopril based on hospital availability. History of PFO, no longer on anticoagulation. History of CVA, no residual deficits -Strongly encourage patient that he will need to follow up with library circulation assistant, Dr. Ventura to discuss/evaluate PFO and need for lifelong anticoagulation vs closure -DVT prophylaxis currently with heparin. Anxiety -Continue daily medication regimen with trazodone and duloxetine. History of Ulcerative colitis with ileostomy in place -Ostomy care as needed. Thank you for allowing us to participate in the care of this pleasant patient. Do not hesitate to contact us with questions. Someone can be reached from the [facility] hospitalist group all hours of the day at [phone] or via [employer] serve. Tian Suazo NP rendered care for this patient independently, reviewed the findings and plan as documented in the note above. I did not physically speak with or examine the patient on this date. Objective - Vital Signs Vital signs: Vital Signs Temp 98.5 F 02/17/22 08:15 Pulse 64 02/17/22 08:15 Resp 17 08/09/22 08:15 BP 134/85 02/17/22 08:15 Pulse Ox 100 02/17/22 08:15 FiO2 Intake & Output 02/16/22 02/17/22 02/17/22 18:59 06:59 18:59 Intake Total 592 Output Total 406 400 Balance 186 -400 Intake: Oral 592 Output: Urine 400 400 Post Void Residual 6 Other: Voiding Method Toilet Toilet Urinal Urinal # Voids 2 - Labs CBC & Chem 7: 02/15/22 07:57 02/17/22 07:18 Labs: Abnormal Lab Results - Last 24 Hours (Table) 02/16/22 02/17/22 Range/Units 10:45 07:18 Chloride 111 H (98-107) mmol/L BUN 27 H (9-20) mg/dL Creatinine 4.93 H (0.66-1.25) mg/dL Total Protein 5.8 L (6.3-8.2) g/dL Albumin 3.1 L (3.5-5.0) g/dL Ur Leukocyte Esterase Moderate H (Negative) Urine WBC 10 H (0-5) /hpf Urine Mucus Rare H (None) /hpf Microbiology - Last 24 Hours (Table) 02/12/22 12:03 Blood Culture - Preliminary Blood No Growth after 96 hours 02/12/22 09:49 Anaerobic Culture - Final Back 02/12/22 09:50 Anaerobic Culture - Final Back 02/12/22 09:49 Anaerobic Culture - Final Back 02/12/22 09:49 Gram Stain - Final Back Tissue Culture - Final
[2022-02-17 10:00] LABS: Anion Gap 10.4 mmol/L (10.00-18.00); Carbon Dioxide 22.6 mmol/L (20.0-27.5); Potassium 4.6 mmol/L (3.5-5.5)
--- NOTE | 2022-02-17 11:16 | P.PN ---
Subjective Patient is seen for follow-up for acute kidney injury. Patient was admitted with drainage from a recent incisional abscess after spinal surgery. He is currently maintained on IV daptomycin. Patient was initially on vancomycin this is now discontinued. Blood pressure has been low. Patient is maintained on IV fluids. Patient reports good urine output Serum creatinine however has been increasing. It is at 4.9 today which is slightly increased from 4.6 yesterday. Ultrasound shows no evidence of hydronephrosis.. Blood pressure has been low. Patient agreed to stay overnight and did not get discharged yesterday. Overall feeling much better with good urine output. Good appetite. No nausea vomiting. Objective - Vital Signs Vital signs: Vital Signs Temp 98.5 F 02/17/22 08:15 Pulse 64 02/17/22 08:15 Resp 17 02/17/22 08:15 BP 134/85 02/17/22 08:15 Pulse Ox 100 02/17/22 08:15 FiO2 Intake & Output 02/16/22 02/17/22 02/17/22 18:59 06:59 18:59 Intake Total 592 Output Total 406 400 Balance 186 -400 Intake: Oral 592 Output: Urine 400 400 Post Void Residual 6 Other: Voiding Method Toilet Toilet Urinal Urinal # Voids 2 - Exam Patient is awake, comfortable, not in any acute distress Alert oriented 3 Examination of the heart S1 and S2 Examination of the lungs bilateral breath sounds are heard Abdomen is soft nontender Examination lower extremities shows no evidence of edema CHILD CARE ATTENDANT exam grossly intact - Labs CBC & Chem 7: 02/15/22 07:57 02/17/22 07:18 Labs: Abnormal Lab Results - Last 24 Hours (Table) 02/17/22 Range/Units 07:18 Chloride 111 H (98-107) mmol/L BUN 27 H (9-20) mg/dL Creatinine 4.93 H (0.66-1.25) mg/dL Total Protein 5.8 L (6.3-8.2) g/dL Albumin 3.1 L (3.5-5.0) g/dL Microbiology - Last 24 Hours (Table) 02/12/22 12:03 Blood Culture - Preliminary Blood No Growth after 96 hours 02/12/22 09:49 Anaerobic Culture - Final Back 02/12/22 09:50 Anaerobic Culture - Final Back 02/12/22 09:49 Anaerobic Culture - Final Back 02/12/22 09:49 Gram Stain - Final Back Tissue Culture - Final Assessment and Plan Assessment: 1. Acute kidney injury, ATN, Blood pressure has been low. Currently maintained on IV fluids. patient was on IV vancomycin and now switched to daptomycin. Vancomycin level was 17.7 on 02/14/2022. UA is benign. Urine eosinophils negative. 2. Spinal abscess status post I&D, maintained on daptomycin. 3. Intolerance to vancomycin with significant GI symptoms currently discontinued. 4. History of ulcerative colitis status post colectomy and ileostomy 5. Intravascular volume depletion currently maintained on IV fluids Plan: Continue with IV fluids. Patient can likely be discharged tomorrow as long as the renal function stabilizes. The rate of increase in the creatinine today is significantly lower than a few days ago suggesting improving renal function.
--- NOTE | 2022-02-17 11:27 | P.PN ---
Subjective Progress Note Date: 02/17/22 Principal diagnosis: 1. Superficial back incisional abscess 2. 4 mo s/p MIS stabilization of T12 fracture Patient was seen at bedside this morning resting comfortably lying semirecumbent position. Patient says his back is feeling much better. Patient says he is ready and wanting to go home. However, patient understands that his creatinine has been elevated since surgery. Nephrology has been following. Patient does mention that as long as his creatinine levels remain about the same tomorrow nephrology discussed that he'll be able to go home tomorrow. Patient denies ch est pain, fever, shortness breath, nausea, vomiting, change in vision. Objective - Vital Signs Vital signs: Vital Signs Temp 98.5 F 02/17/22 08:15 Pulse 64 02/17/22 08:15 Resp 17 02/17/22 08:15 BP 134/85 02/17/22 08:15 Pulse Ox 100 02/17/22 08:15 FiO2 Intake & Output 02/16/22 02/17/22 02/17/22 18:59 06:59 18:59 Intake Total 592 Output Total 406 400 Balance 186 -400 Intake: Oral 592 Output: Urine 400 400 Post Void Residual 6 Other: Voiding Method Toilet Toilet Urinal Urinal # Voids 2 - Exam Foam dressing is present over incision. Incision is clean, dry, intact. Incision is healing well at this time. There is scab formation over incision. Sutures are well aligned intact in good place at this time. Negative for any fluctuance/purulence. Minimal erythema. Minimal swelling. There is some lo calized mild tenderness to palpation near the incision. Patient is nontender to palpation throughout rest exam. Sensation is equal, symmetric, bilaterally intact throughout the upper and lower extremities. Neurovascular status is intact bilaterally. Radial pulses intact, 2+ bilaterally. Cap refill under 3 seconds in digits of upper extremities. Patient does have full range of motion bilateral upper and lower extremities. Motor exam grossly intact 5/5 in bilateral upper and lower extremities - Labs CBC & Chem 7: 02/15/22 07:57 02/17/22 07:18 Labs: Abnormal Lab Results - Last 24 Hours (Table) 02/16/22 02/17/22 Range/Units 10:45 07:18 Chloride 111 H (98-107) mmol/L BUN 27 H (9-20) mg/dL Creatinine 4.93 H (0.66-1.25) mg/dL Total Protein 5.8 L (6.3-8.2) g/dL Albumin 3.1 L (3.5-5.0) g/dL Ur Leukocyte Esterase Moderate H (Negative) Urine WBC 10 H (0-5) /hpf Urine Mucus Rare H (None) /hpf Microbiology - Last 24 Hours (Table) 02/12/22 12:03 Blood Culture - Preliminary Blood No Growth after 96 hours 02/12/22 09:49 Anaerobic Culture - Final Back 02/12/22 09:50 Anaerobic Culture - Final Back 02/12/22 09:49 Anaerobic Culture - Final Back 02/12/22 09:49 Gram Stain - Final Back Tissue Culture - Final Assessment and Plan Assessment: 1. Superficial back incisional abscess 2. 4 mo s/p MIS stabilization of T12 fracture Postoperative day #5 status post- 1. Incision and drainage of incisional back abscess 2. Excisional debridment of incisional back abscess skin, soft tissue and muscle 3 x 2 x 5 cm using the following -Skin knife for excision of necrotic skin -Rongure for removal of phlegmon and abscess jackson -Curette for scraping of muscle tissues and skin 3. Complex closure 3 layers 3 x 2 x 5 cm posterior torso Plan: 1. Superficial back incisional abscess; 4 mo s/p MIS stabilization of T12 fracture - I&D of incisional back abscess performed 02/12/2022. Patient stable at bedside this morning. Creatinine elevated at 4.9 today versus 4.6 yesterday. Renal function appears to be stabilizing at this time. Recommend daily dressing changes. Plan for discharge home tomorrow. 2. Appreciate medical, ID and nephrology management - patient currently on daptomycin. Plan is to send patient home with Keflex 500 mg 4 times a day 10 days 3. Pain management - oxycodone 4. DVT prophylaxis - mechanical 5. GI prophylaxis - senna 6. PT/OT recs 7. Encourage incentive spirometer use 8. Discharge planning - plan for home tomorrow Time with Patient: Less than 30
[2022-02-17] MEDS ORDERED: DAPTOmycin 500 MG in SODIUM CHLORIDE 0.9% 50 ML IVPB SCH (14:00)
[2022-02-17] MEDS: traZODone HCL 100 MG TAB PO SCH (21:02)
[2022-02-18] MEDS: LACTATED RINGERS 1,000 ML IV SCH ×3 (05:43→11:59)
[2022-02-18] MEDS: ACETAMINOPHEN TAB 500 MG TAB PO SCH ×2 (05:44→11:58)
[2022-02-18] MEDS: DULoxetine HCL 30 MG CAPSULE.DR PO SCH (07:57)
[2022-02-18] MEDS: HEPARIN SODIUM,PORCINE/PF 5,000 UNIT/0.5 ML SYRINGE SQ SCH (07:57)
[2022-02-18] MEDS: MIDODRINE 5 MG TAB PO SCH ×2 (07:57→11:59)
[2022-02-18 08:12] VITALS: BP 122/78; PULSE 64; RESP 16; TEMP 97.8
--- NOTE | 2022-02-18 08:56 | P.PN ---
Subjective Progress Note Date: 02/18/22 Principal diagnosis: 1. Superficial back incisional abscess 2. 4 mo s/p MIS stabilization of T12 fracture Patient seen and examined at bedside. Spouse present within the room. Patient states his back pain is currently managed. He is looking forward to possible discharge today pending his labs for renal function. Patient will be discharged on oral antibiotics. Surgical dressing is CDI. Patient instructed to shower 1-2 times daily, with dressing changes. He denies any fevers/chills, nausea/vomiting, or shortness of breath. Objective - Vital Signs Vital signs: Vital Signs Temp 97.8 F 02/18/22 08:00 Pulse 64 02/18/22 08:00 Resp 16 02/18/22 08:00 BP 122/78 02/18/22 08:00 Pulse Ox 100 02/18/22 08:00 FiO2 Intake & Output 02/17/22 02/18/22 02/18/22 18:59 06:59 18:59 Output Total 400 Balance -400 Output: Urine 400 Other: Voiding Method Toilet # Voids 3 - Exam Physical Examination General: The patient is awake and alert, in no acute distress Skin: Skin is warm and dry with no obvious rashes or lesions. Hairy patches absent, no dorsal skin dimples, no cafe au lait spots, and surgical incision to lumbar spine. Eye: Pupils are equal, round and reactive to light, extra-ocular movements are intact; there is normal conjunctiva bilaterally. Neck: The neck is supple, there is no tenderness and ROM intact. Cardiovascular: There is a regular rate and rhythm. No murmur, rub or gallop is appreciated. Respiratory: Lungs are clear to auscultation, respirations are non-labored, breath sounds are equal. Gastrointestinal: Soft, non-distended, non-tender abdomen . Back: There is no tenderness to palpation in the midline, paralumbar, paratho racic or buttocks region. There is no obvious deformity . Musculoskeletal: ROM limited secondary to pain and stiffness from surgical procedure. Shoulder abduction 5/5, elbow flexors 5/5, wrist dorsiflexors 5/5. finger abductor 5/5, mold shop supervisor 5/5, hip flexor 5/5, knee flexor 5/5, ankle dorsiflexor 5/5, ankle plantarflexion 5/5 and extensor hallucis 5/5. Neurological: CN 2-12 intact. There are no obvious motor or sensory deficits. Movement and coordination equal and intact. Sensory exam to light touch intact C5-T1 and intact from L2-S1. Reflexes 2/4 in bilateral upper and lower extremities. Negative Hoffmans, babinski, and clonus signs. Psychiatric: Cooperative, appropriate mood & affect, normal judgment. - Labs CBC & Chem 7: 02/15/22 07:57 02/17/22 07:18 Labs: Microbiology - Last 24 Hours (Table) 02/12/22 12:03 Blood Culture - Preliminary Blood No Growth after 120 hours Assessment and Plan Assessment: 1. Superficial back incisional abscess 2. 4 mo s/p MIS stabilization of T12 fracture Postoperative day #6 status post- 1. Incision and drainage of incisional back abscess 2. Excisional debridment of incisional back abscess skin, soft tissue and muscle 3 x 2 x 5 cm using the following -Skin knife for excision of necrotic skin -Rongure for removal of phlegmon and abscess jackson -Curette for scraping of muscle tissues and skin 3. Complex closure 3 layers 3 x 2 x 5 cm posterior torso Plan: 1. Superficial back incisional abscess; 4 mo s/p MIS stabilization of T12 fracture - I&D of incisional back abscess performed 02/12/2022. Patient stable at bedside this morning. Pending renal function labs, if stabilized we will plan for discharge today. Recommend 1-2 showers daily with dressing changes. 2. Appreciate medical, ID and nephrology management - patient currently on daptomycin. Plan is to send patient home with Keflex 500 mg 4 times a day 10 days 3. Pain management - oxycodone 4. DVT prophylaxis - mechanical 5. GI prophylaxis - senna 6. PT/OT recs 7. Encourage incentive spirometer use 8. Discharge planning - plan for home today *I reviewed and discussed this case with my attending Dr. Corona, whom has reviewed this chart and films and is in agreement with assessment and plan of care as outlined above. I have personally seen and examined the patient, performed the documentation and the assessment and plan as written. Number of minutes spent on the visit: 20.
[2022-02-18 09:19] LABS: HCT 32.6 % (39.6-50.0); HGB 10.6 g/dL (13.0-17.0); MCH 28.8 pg (27.0-32.0); MCHC 32.5 g/dL (32.0-37.0); MCV 88.6 fL (80.0-97.0); Mean Platelet Volume 9.8 fL (9.5-12.2); NRBC Per 100 WBC 0 /100 WBCS (0.0-0.0); Platelet Count 213 X 10*3/uL (140-440); RBC 3.68 X 10*6/uL (4.40-5.60); WBC 4.96 X 10*3/uL (4.50-10.00)
[2022-02-18 09:33] LABS: ALT 32 U/L (10-49); AST 36 U/L (14-35); African American GFR (CKD) 14.4 (60.0-200.0); Albumin/Globulin Ratio 1.36 (1.60-3.17); Alkaline Phosphatase 69 U/L (41-126); BUN/Creat Ratio 5.71 Ratio (12.00-20.00); Calcium 8.3 mg/dL (8.7-10.3); Carbon Dioxide 21.4 mmol/L (20.0-27.5); Chloride 108 mmol/L (96-109); Globulin 2.2 g/dL (1.6-3.3); Glucose 86 mg/dL (70-110); Non-African American GFR(CKD) 12.4 (60.0-200.0); Sodium 140 mmol/L (135-145); Total Bilirubin <0.15 mg/dL (0.30-1.20); Total Protein 5.2 g/dL (6.2-8.2)
--- NOTE | 2022-02-18 12:10 | P.PN ---
Subjective Patient is seen for follow-up for acute kidney injury. Patient was admitted with drainage from a recent incisional abscess after spinal surgery. He is currently maintained on IV daptomycin. Patient was initially on vancomycin this is now discontinued. Blood pressure has been low. Patient is maintained on IV fluids. Patient reports good urine output Overall feeling much better with good urine output. Good appetite. No nausea vomiting. Serum creatinine today staying at 4.9 mg/dL Objective - Vital Signs Vital signs: Vital Signs Temp 97.8 F 02/18/22 08:00 Pulse 64 02/18/22 08:00 Resp 16 02/18/22 08:00 BP 122/78 02/18/22 08:00 Pulse Ox 100 02/18/22 08:00 FiO2 Intake & Output 02/17/22 02/18/22 02/18/22 18:59 06:59 18:59 Output Total 400 1400 Balance -400 -1400 Output: Urine 400 500 Stool 900 Other: Voiding Method Toilet Toilet # Voids 3 3 - Exam Patient is awake, comfortable, not in any acute distress Alert oriented 3 Patient appears euvolemic Examination lower extremities shows no evidence of edema PLAYGROUND DIRECTOR exam grossly intact - Labs CBC & Chem 7: 02/18/22 06:31 02/18/22 06:31 Labs: Abnormal Lab Results - Last 24 Hours (Table) 02/18/22 02/18/22 Range/Units 06:31 06:31 RBC 3.68 L (4.40-5.60) X 10*6/uL Hgb 10.6 L (13.0-17.0) g/dL Hct 32.6 L (39.6-50.0) % BUN 28.0 H (9.0-27.0) mg/dL Creatinine 4.9 H (0.6-1.5) mg/dL Est GFR (CKD-EPI)AfAm 14.4 L (60.0-200.0) Est GFR (CKD-EPI)NonAf 12.4 L (60.0-200.0) BUN/Creatinine Ratio 5.71 L (12.00-20.00) Ratio Calcium 8.3 L (8.7-10.3) mg/dL Total Bilirubin <0.15 L (0.30-1.20) mg/dL AST 36 H (14-35) U/L Total Protein 5.2 L (6.2-8.2) g/dL Albumin 3.0 L (3.8-4.9) g/dL Albumin/Globulin Ratio 1.36 L (1.60-3.17) g/dL Microbiology - Last 24 Hours (Table) 02/12/22 12:03 Blood Culture - Preliminary Blood No Growth after 120 hours Assessment and Plan Assessment: 1. Acute kidney injury, ATN, Blood pressure has been low. Currently maintained on IV fluids. patient was on IV vancomycin and now switched to daptomycin. Vancomycin level was 17.7 on 02/14/2022. UA is benign. Urine eosinophils negative. Serum creatinine has stabilized. 2. Spinal abscess status post I&D, maintained on daptomycin. 3. Intolerance to vancomycin with significant GI symptoms currently discontinued. 4. History of ulcerative colitis status post colectomy and ileostomy 5. Intravascular volume depletion currently maintained on IV fluids Plan: Patient can be discharged from nephrology standpoint. Advised to avoid NSAIDs and CHESTER inhibitor/angiotensin receptor blockers Maintain adequate oral intake particularly fluids Monitor blood pressure Follow-up in the office in about 1 week
--- NOTE | 2022-02-18 12:24 | P.DS ---
Providers Date of admission: 02/12/22 10:26 Expected date of discharge: 02/18/22 Attending physician: Ulisses Corona DO Consults: 02/12/22 10:08 Consult Physician Routine Consulting Provider: Shaji Escobedo Consult Reason/Comments: Back abscess Do you want consulting provider notified?: Yes 02/12/22 10:11 Consult Physician Routine Consulting Provider: Angie Man Consult Reason/Comments: medical management Do you want consulting provider notified?: Yes 02/14/22 11:08 Consult Physician Routine Consulting Provider: Ignacio Jaime Consult Reason/Comments: LINA Do you want consulting provider notified?: Yes Primary care physician: Jah Davidson Hospital Course: Date of admission: 02/12/2022 Date of discharge: 02/18/2022 Admission diagnosis: superficial back incisional abscess; 4 mo s/p MIS stabilization of T12 fracture Discharge diagnosis: Same Attending physician: Dr. Corona Surgical procedures: I&D of back abscess Brief history: Patient is a 56-year-old male with a history of superficial back incisional abscess 4 mths status post MIS stabilization of T12 fracture. At t his point patient has failed conservative treatment measures and has opted to proceed with a elective incision and drainage of back abscess. Hospital course: Details of patient's surgery can be found in operative report. Patient tolerated the procedure well and was subsequently transported to orthopedic floor. Patient's orthopeidc and medical care was provided daily. Patient had daily laboratory tests performed for evaluation of overall blood counts. Patient had daily physical therapy to include strengthening range of motion as well as education with walker ambulation.. Patient was noted to have a relatively uneventful postoperative course. Patient reported satisfactory pain control with oral pain medications by postoperative day 6. Patient showed satisfactory progress with physical therapy. Patient moved steadily through the program and had no difficulty meeting the goals by postoperative day 6. Given patient's otherwise satisfactory course and having met physical therapy goals, plan is to discharge patient home on postoperative day 6. Discharge condition/disposition: Patient will be discharged home in stable condition. Discharge medications: Instructions are given on resumption of patient's normal daily medications per primary care recommendation, in addition patient will be prescribed Keflex; Midodrine; resume Homer 10mg/325mg once home for pain. Orthopedic Discharge Instructions: 1. Take medications as prescribed 2. Keep incision covered and dry while showering 3. No lifting, pulling or pushing over 10lbs 4. Follow up at [facility] in 3 days for recheck Activity: As tolerated. Take breaks as needed. Diet: Heart healthy and carb consistent diet. Avoid salts, or foods with hidden salts such as canned or boxed foods and frozen dinners. Extra salt makes your heart work harder and traps the fluid in your body for longer. Special Instructions: Take all of your medications as directed and remember to keep all of your doctor's appointments and follow-up as needed. Strongly encourage outpatient follow up with Dr. Ventura to discuss/evaluate PFO and need for anticoagulation vs closure. Thank you for allowing us to participate in your care, it was truly a pleasure having you for our patient!!! Assessment: 1. Superficial back incisional abscess 2. 4 mo s/p MIS stabilization of T12 fracture Procedures: 1. Incision and drainage of incisional back abscess 2. Excisional debridment of incisional back abscess skin, soft tissue and muscle 3 x 2 x 5 cm using the following -Skin knife for excision of necrotic skin -Rongure for removal of phlegmon and abscess jackson -Curette for scraping of muscle tissues and skin 3. Complex closure 3 layers 3 x 2 x 5 cm posterior torso Patient Condition at Discharge: Good Plan - Discharge Summary Discharge Rx Participant: No New Discharge Prescriptions: New Cephalexin [Keflex] 500 mg PO Q6HR 10 Days #40 cap Midodrine [ProAmatine] 10 mg PO AC-TID #90 tab Continue traZODone HCL 300 mg PO HS DULoxetine HCL [Cymbalta] 30 mg PO DAILY Ascorbic Acid [Vitamin C] 500 mg PO DAILY HYDROcodone/APAP 10-325MG [Homer 10-325] 1 tab PO Q4HR PRN PRN Reason: Pain Discontinued Quinapril HCl [Accupril] 20 mg PO BID Calcium Carbonate [Calcium] 600 mg PO DAILY Discharge Medication List traZODone HCL 300 mg PO HS 11/02/21 [History] Ascorbic Acid [Vitamin C] 500 mg PO DAILY 02/10/22 [History] DULoxetine HCL [Cymbalta] 30 mg PO DAILY 02/10/22 [History] HYDROcodone/APAP 10-325MG [Homer 10-325] 1 tab PO Q4HR PRN 02/10/22 [History] Cephalexin [Keflex] 500 mg PO Q6HR 10 Days #40 cap 02/16/22 [Rx] Midodrine [ProAmatine] 10 mg PO AC-TID #90 tab 02/18/22 [Rx] Follow up Appointment(s)/Referral(s): Nessa Case MD [STAFF PHYSICIAN] - 3 Days (office not answering Please call to schedule appointment ) Nj Ventura MD [STAFF PHYSICIAN] - 1 Week (Strongly encourage outpatient follow up with Dr. Ventura to discuss/evaluate PFO and need for anticoagulation vs closure. office will call with appointment time) Ulisses Corona DO [Doctor of Osteopathic Medicine] - 02/26/22 8:40 am Ambulatory/Diagnostic Orders: Comprehensive Metabolic Panel [LAB.AMB] Location: None Selected Activity/Diet/Wound Care/Special Instructions: Orthopedic Discharge Instructions: 1. Take medications as prescribed 2. Keep incision covered and dry while showering 3. No lifting, pulling or pushing over 10lbs 4. Follow up at [facility] in 3 days for recheck Activity: As tolerated. Take breaks as needed. Diet: Heart healthy and carb consistent diet. Avoid salts, or foods with hidden salts such as canned or boxed foods and frozen dinners. Extra salt makes your heart work harder and traps the fluid in your body for longer. Special Instructions: Take all of your medications as directed and remember to keep all of your doctor's appointments and follow-up as needed. Strongly encourage outpatient follow up with Dr. Ventura to discuss/evaluate PFO and need for anticoagulation vs closure. Thank you for allowing us to participate in your care, it was truly a pleasure having you for our patient!!! Discharge Disposition: HOME SELF-CARE
--- NOTE | 2022-02-18 16:44 | P.PN ---
Subjective Progress Note Date: 02/18/22 Patient seen and examined. No acute events overnight. Patient reports feeling at baseline and wanted to be discharged before 12 PM. Creatinine 4.9 today. General: [non toxic], [no distress], [appears at stated age] Derm: [warm], [dry], [Dressing to lumbar region of the back is clean, dry, and intact with no signs of bleeding or drainage.] Head: [atraumatic], [normocephalic], [symmetric] Eyes: [EOMI], [no lid lag], [anicteric sclera] Mouth: [no lip lesion], [mucus membranes moist] Cardiovascular: [S1S2 reg], [systolic murmur] Lungs: [CTA bilateral], [no rhonchi, no rales] , [no accessory muscle use] Ext: [no gross muscle atrophy], [no edema], [no contractures] Neuro: [no focal neuro deficits] Psych: [Alert], [oriented], [appropriate affect] Assessment and Plan of Care: Status post incision and drainage of superficial back incisional abscess -Management per primary admitting orthospine surgery team including DVT prophylaxis, pain management, postoperative dressing change, and PT/OT. -Patient currently on DVT prophylaxis with heparin -Plans for 10 days of Keflex on discharge -Infectious disease following. Acute kidney injury -Creatinine 4.9, BUN 28, and GFR of 12 with baseline creatinine of 0.79. -Renal ultrasound revealing no evidence of hydronephrosis or mass in right or left kidney bladder normal findings with no evidence of obstructive uropathy -Vancomycin was discontinued and patient was started on daptomycin -Follow up with Nephrology in the outpatient setting. -Urinalysis negative for infection. -Continue with IV fluid hydration Hypotension Intravascular dehydration -Discontinue Quinapril for now until Nephrology follow up -On 02/14/22 patient had significant drop in blood pressure 70's systolic. Patient received aggressive IV fluid hydration. -Nephrology started patient on Midodrine. Acute postoperative blood loss anemia, expected finding and stable. -Hemoglobin 10.6 -Stable History of PFO, no longer on anticoagulation. History of CVA, no residual deficits -Strongly encourage patient that he will need to follow up with smoke control supervisor, Dr. Ventura to discuss/evaluate PFO and need for lifelong anticoagulation vs closure -DVT prophylaxis currently with heparin. Anxiety -Continue daily medication regimen with trazodone and duloxetine. History of Ulcerative colitis with ileostomy in place -Ostomy care as needed. Thank you for allowing us to participate in the care of this pleasant patient. Do not hesitate to contact us with questions. Someone can be reached from the [facility] hospitalist group all hours of the day at [phone] or via perfect serve. Patient is medically cleared for discharge. Objective - Vital Signs Vital signs: Vital Signs Temp 97.8 F 02/18/22 08:00 Pulse 64 02/18/22 08:00 Resp 16 02/18/22 08:00 BP 122/78 02/18/22 08:00 Pulse Ox 100 02/18/22 08:00 FiO2 Intake & Output 02/17/22 02/18/22 02/18/22 18:59 06:59 18:59 Output Total 400 1400 Balance -400 -1400 Output: Urine 400 500 Stool 900 Other: Voiding Method Toilet Toilet # Voids 3 3 - Labs CBC & Chem 7: 02/18/22 06:31 02/18/22 06:31 Labs: Abnormal Lab Results - Last 24 Hours (Table) 02/18/22 02/18/22 Range/Units 06:31 06:31 RBC 3.68 L (4.40-5.60) X 10*6/uL Hgb 10.6 L (13.0-17.0) g/dL Hct 32.6 L (39.6-50.0) % BUN 28.0 H (9.0-27.0) mg/dL Creatinine 4.9 H (0.6-1.5) mg/dL Est GFR (CKD-EPI)AfAm 14.4 L (60.0-200.0) Est GFR (CKD-EPI)NonAf 12.4 L (60.0-200.0) BUN/Creatinine Ratio 5.71 L (12.00-20.00) Ratio Calcium 8.3 L (8.7-10.3) mg/dL Total Bilirubin <0.15 L (0.30-1.20) mg/dL AST 36 H (14-35) U/L Total Protein 5.2 L (6.2-8.2) g/dL Albumin 3.0 L (3.8-4.9) g/dL Albumin/Globulin Ratio 1.36 L (1.60-3.17) g/dL Microbiology - Last 24 Hours (Table) 02/12/22 12:03 Blood Culture - Final Blood No Growth after 144 hours
== END 2022-02-18 14:13 | disposition home or self-care (01) | DRG 856 ==
LOC: OR 07:41 → 4SSUR 10:10 → OR 10:26
PROVIDERS: ADMIT Orthopaedic Surgery; ATTEND Orthopaedic Surgery
PROC: 0KBG0ZZ Excision of Left Trunk Muscle, Open Approach (ICD-10-PCS; principal; 2022-02-12 09:00)
DX: T81.41XA Infection following a procedure, superficial incisional surgical site, initial encounter (principal); N17.0 Acute kidney failure with tubular necrosis; D62 Acute posthemorrhagic anemia; K51.90 Ulcerative colitis, unspecified, without complications; L02.212 Cutaneous abscess of back [any part, except buttock and flank]; L03.312 Cellulitis of back [any part except buttock and flank]; Q21.1 Atrial septal defect; E86.0 Dehydration; F32.A Depression, unspecified; F41.9 Anxiety disorder, unspecified; E87.8 Other disorders of electrolyte and fluid balance, not elsewhere classified; I10 Essential (primary) hypertension; I95.9 Hypotension, unspecified; E86.9 Volume depletion, unspecified; W19.XXXA Unspecified fall, initial encounter; Z79.899 Other long term (current) drug therapy; Z86.73 Personal history of transient ischemic attack (TIA), and cerebral infarction without residual deficits; Z93.2 Ileostomy status; Z98.1 Arthrodesis status; Z90.49 Acquired absence of other specified parts of digestive tract; Z28.310 Unvaccinated for COVID-19; Z87.81 Personal history of (healed) traumatic fracture
CPT/HCPCS: 36600; 76770; 80048; 80051; 80053; 80202; 81001; 82565; 82570; 82805; 83930; 83935; 84300; 85025; 85027; 85610; 85652; 86140; 87040; 87070; 87075; 87205

== ENCOUNTER 2022-05-11 06:51 | Day surgery (SDC) | payer BC ==
[2022-05-08 10:42] VITALS: BMI 27.7
[~2022-05-11 06:51] MED LIST changes: -VANCOMYCIN 1,250 MG in SODIUM CHLORIDE 0.9% 250 ML IVPB PRN
[2022-05-11] MEDS ORDERED: ONDANSETRON 4 MG/2 ML VIAL ONE (07:30)
[2022-05-11] MEDS ORDERED: MIDAZOLAM 2 MG/2 ML VIAL IVP ONE ×2 (07:35→07:50)
[2022-05-11] MEDS ORDERED: LACTATED RINGERS 1,000 ML IV ONE ×2 (07:43→09:36)
[2022-05-11] MEDS ORDERED: ONDANSETRON 4 MG/2 ML VIAL IVP ONE (07:46)
[2022-05-11] MEDS ORDERED: DEXAMETHASONE SOD PHOSPHATE 4 MG/ML 1 ML VIAL IVP ONE (07:46)
--- NOTE | 2022-05-11 08:18 | P.HPOR ---
History of Present Illness H&P Date: 05/11/22 Chief Complaint: Wound healing issues 57 yo male presented to the office with wound healing issues. He has had 1 I&D previously for this wound and it healed well and now he is having issues with it again. He states the small MIS incision on the top left opened up again and was draining serous fluid. Denies any f/c/sob/cp at this time. Denies any other issues. States he has been doing well otherwise. No neurological issues. Review of Systems All systems: negative Constitutional: Reports as per HPI Past Medical History Past Medical History: CVA/TIA, Hypertension Additional Past Medical History / Comment(s): Hx cva years ago- no residual effects ., ulcerative colitis with ileostomy., PFO, hx of back injury with fx october 2021 with surgery., unhealing wound back. History of Any Multi-Drug Resistant Organisms: None Reported Past Surgical History: Back Surgery Additional Past Surgical History / Comment(s): ileostomy, back surgery October. Past Anesthesia/Blood Transfusion Reactions: No Reported Reaction Past Psychological History: Depression Smoking Status: Never smoker Past Alcohol Use History: None Reported Past Drug Use History: None Reported - Past Family History Mother Family Medical History: No Reported History Medications and Allergies Home Medications Medication Instructions Recorded Confirmed Type traZODone HCL 300 mg PO HS 11/02/21 05/08/22 History DULoxetine HCL [Cymbalta] 30 mg PO DAILY 02/10/22 05/08/22 History Cyclobenzaprine [Flexeril] 5 mg PO TID 05/08/22 05/08/22 History Ibuprofen [Motrin Ib] 600 mg PO DIRECTED PRN 05/08/22 05/08/22 History Quinapril HCl [Accupril] 20 mg PO DAILY PRN 05/08/22 05/08/22 History Allergies Allergy/AdvReac Type Severity Reaction Status Date / Time No Known Allergies Allergy Verified 05/08/22 10:20 Physical Examination Osteopathic Statement: *. No significant issues noted on an osteopathic structural exam other than those noted in the History and Physical/Consult. Physical Exam: -Patient is alert and oriented 3 appears well-nourished well-hydrated is in no acute distress. They do not appear septic. -There is no TTP about the lumbar spine top left MIS incision has small draining sinus tract minimal pain and minimal erythema seems to have dehisced centrally. -Upper extremities show [5] out of 5 strength in all major muscle groups. -Lower extremities with [5] out of 5 strength in all major muscle groups -There is [FROM] that is [painless] of the b/l UE and LE in all major joints. -They are intact to light touch sensation in C5 to T1 and L2 to S1 nerve distribution. -DTR [2]/4 all upper and lower extremities -Patient has palpable distal pulses all 4 ext -Compartments are soft and compressible. -Patient shows a negative Celia's [-Neg Hoffmans b/l] [-Neg Clonus b/l] [-Neg babinski b/l] Cranial nerves II through XII are grossly intact. Assessment and Plan Assessment: 1. Wound dehiscence lumbar spine Plan: .D:Date: 05/06/22 : 01:11pm .T:Title: Spine Surgery Risk Review Mr. Wall is presenting for evaluation of lumbar wound delayed healing. It was my pleasure to have seen and examined Mr. Wall. In our visit today we have had a chance to go over subjective complaints, physical examination findings and treatments including the natural course history without intervention and various interventional options. On physical exam, Mr. Wall demonstrates no sign of any infection, small opening and slight serous drainage to the top left incision site, EEE, edema, or ecchymosis. No fevers or chills.. I have explained to the patient that as their condition progresses it will cause further neurological deficits and eventual paralysis. Based on the patients imaging, physical exam, and the rapid progression and disabling nature of their symptoms, at this time I recommend surgery in the form or a: Lumbar revision Irrigation and Debridement with Incision and Drainage of lumbar surgical wound. I discussed the risk and benefits of this procedure at length with Mr. Wall. The patient agreed to considered pursuing the procedure abovementioned. Prior to surgery, she should follow up with her PCP (Cardio, ID, IM etc) for clearance. Questions were invited and answered, and the patient wishes to proceed as outlined below. Currently, I am recommendin.Lumbar revision Irrigation and Debridement with Incision and Drainage of lumbar surgical wound 2.Follow up with PCP for surgical clearance 3.Review of surgical risks and benefits as well as an educational packet on the proposed surgical procedure. Risks: All surgical procedures come with inherent risks, including those related to positioning, anesthesia, intraoperative findings, and postoperative complications. It is important to understand that surgery does not come with any guarantee of a successful outcome as complications and adverse events are always possible. The patient was given a handout in office today discussing the surgical pro cedure and risks associated with the intervention, both of which were discussed with the patient. These risks include but are not limited to the following: * Experiencing same, different or even worse symptoms in back, neck, arms, or legs compared to before surgery. Requiring further surgery or other forms of treatment presently or at some time in the future at same or other levels of the intended spine surgery. On an extreme but fortunately relatively rare basis severe complication such as blindness, stroke, heart attack, temporary and/or permanent nerve injury, paralysis, coma, or may occur, sometimes without known explanation. Surgical complications may include but are not limited to risk of infection, fluid accumulation in the surgical dissection site, including a seroma or hematoma, that requires additional surgery, wound drainage, bleeding, new numbness or weakness, vision changes/loss, spinal fluid leakage, non-healing and/or infected incision, headaches, difficulty or inability to swallow, hoarseness, hemopneumothorax, pneumothorax, impotence, retrograde ejaculation, vaginal dryness; injury to nerves, spinal cord, blood vessels, lymphatics or ot her vital organs (i.e., bowel injury, injury to the great vessels); heterotopic bone formation; complications related to the hardware such as screws, rods, cages including misplaced hardware, device failure, instrumentation at the wrong spine level, hardware fracture/breakage, or hardware loosening; vertebral failure of the spinal column above or below the newly placed hardware; retained surgical instrumentations or devices and the need for further surgery. * Medical risks of the planned spine surgery include but are not limited to generalized Infections to the whole body or local areas outside of the surgical site (sepsis), heart attack, bleeding, anaphylaxis, meningitis, seizure, epilepsy, hearing loss, burn del real, laceration of the head or other areas of the body, bruising, hypersensitivity of the skin, bladder over distension; allergic reaction; shoulder injury related to positioning; fat, blood and air clots to other areas of the body like heart, lungs, brain; failure of internal organs such as lungs, kidneys, liver and excessive bleeding. If blood transfusions are necessary, note that transfusions may cause intolerance reactions such as anaphylaxis or other complex reactions. Despite best efforts, the results of spine surgery might not heal in terms of bone, soft tissues such as skin, fascia, ligaments, and joints. Additionally, in order to achieve best possible results, spine surgery may be carried out beyond the initially planned levels and involve decompression, fusion including insertion of hardware at levels other than the original intended area of surg ical interest change some portions of the procedure in order to ensure the best possible outcomes. With spine surgery and spinal fusion, there are different off label uses of instrumentation (devices, implants and hardware) as well as biological substances (bone morphogenic proteins, demineralized bone matrix) as well as using extra bone from allograft sources (i.e. cadaver bone) or autograft (iliac crest bone, ribs, or the spine itself). The patient has been given information about these practices and their inherent risks and benefits. [facility] is an educational center that serves as a training facility for neurosurgical and orthopedic [employer] and Nursing students. Physician assistants are medically trained surgical providers who function in the outpatient, inpatient, and operating room setting under the direct supervision of the attending surgeon. [facility] has multiple operating rooms with single and overlapping rooms running daily. They currently function under the required guidelines as produced by the [facility] Finance Committee with regards to the overlapping rooms and will continue to comply with changes to this policy as they occur. The requirements include and are complied with as follows: (1) the critical portions of the overlapping rooms will not occur at the same time, (2) the attending physician will be physically present during the critical portions of the procedure and immediately available during the entire case, and (3) a back-up attending is designated should the primary attending not be immediately available. The patient has had a chance to review all the listed information, has been given print outs detailing this information, and has had all his/her questions answered to their satisfaction. It was my pleasure to have seen and examined Mr. Wall. In our visit today we have had a chance to go over my understanding of our patient's current condition, the natural course history without intervention and various interventional options. Questions were invited and answered, and the patient wishes to proceed as outlined above. I have seen and examined the patient for 25 minutes and we have spent more than 50% of the time in repeat and detailed counseling about the patient's condition, its natural course history with out and as much as can be predicted with surgery and re-review of various surgical treatment options. In conclusion, Mr. Wall requested we proceed with the above suggested surgery and are willing to accept risks and limitations of the suggested surgery as nature of the disease process and our best attempts at treatment for the condition. Thank you again for allowing us to be part of your patient's care. Please don't hesitate to contact me if you have any further questions. Signed and authenticated by: [employer] P:\\ppart\\[id number]\\[id number].PNG \d Ulisses Santacruz [facility] [address], [place] [address] # SIGNED BY Ulisses Corona (GOO)05/06/2022 01:17PM
[2022-05-11] MEDS ORDERED: MIDAZOLAM 2 MG/2 ML VIAL ONE (08:51)
[2022-05-11] MEDS ORDERED: LIDOCAINE 2% INJ 20 MG/ML (2 ML VIAL) ONE (08:51)
[2022-05-11] MEDS ORDERED: fentaNYL (PF) 50 MCG/ML 2 ML AMP ONE (08:51)
[2022-05-11] MEDS ORDERED: HYDROmorphone (PF) 1 MG/ML ONE (08:51)
[2022-05-11] MEDS ORDERED: PROPOFOL 10 MG/ML 20 ML VIAL IV ONE (08:51)
[2022-05-11] MEDS ORDERED: SUCCINYLCHOLINE CHLORIDE 200 MG/10 ML VIAL IV ONE (08:51)
[2022-05-11] MEDS ORDERED: ceFAZolin 3,000 MG in SODIUM CHLORIDE 0.9% IRRIGATIO 3,000 ML IRRIGATION ONE (09:22)
[2022-05-11] MEDS ORDERED: GENTAMICIN 80 MG in SODIUM CHLORIDE 0.9% IRRIGATIO 3,000 ML IRRIGATION ONE (09:22)
[2022-05-11] MEDS ORDERED: LIDOCAINE 1%-EPI 1:100,000 20 ML VIAL SQ ONE (09:47)
[2022-05-11] MEDS ORDERED: BUPIVACAINE (PF) 0.25% 30 ML VIAL SQ ONE (09:48)
[2022-05-11] MEDS ORDERED: HYDROcodone/APAP 10-325MG 1 EACH TAB PO PRN (09:58)
[2022-05-11] MEDS ORDERED: HYDROcodone/APAP 5-325MG 1 EACH TAB PO PRN (09:58)
[2022-05-11] MEDS ORDERED: HYDROmorphone 1 MG/ML 1 ML SYRINGE IVP PRN (09:58)
[2022-05-11] MEDS ORDERED: HYDROmorphone 0.5 MG/0.5 ML SYRINGE IVP PRN (09:58)
[2022-05-11] MEDS ORDERED: CYCLOBENZAPRINE 5 MG TAB PO PRN (09:58)
[2022-05-11] MEDS ORDERED: SENNOSIDES-DOCUSATE SODIUM 1 EACH TAB PO PRN (09:58)
[2022-05-11 10:06] VITALS: TEMP 96.8
--- NOTE | 2022-05-11 10:13 | P.OP ---
Date of Procedure: 05/11/22 Preoperative Diagnosis: 1. Wound dehiscence low back Postoperative Diagnosis: 1. Wound dehiscence low back Procedure(s) Performed: 1. Irrigation and debridement of lumbar spine wound 5 x 3 x 2 cm. Using the following. - Skin knife used to remove any necrotic skin and freshen wound edges - rounder used to remove any other further tissue deep within the muscle subcu. - Curet used to scrape tissue. - 3 L of Ancef irrigation followed with 3 L of gentamicin irrigation followed with 3 L of normal sterile saline were used to irrigate the wound. Implants: [employer] Anesthesia: GETA Surgeon: Ulisses Corona Core Machine Tender #1: Adolfo Rebolledo ( Was present and assisted in all aspects of the case clean positioning debridement closure and dressing placement) Estimated Blood Loss (ml): 10 IV fluids (ml): 200 Urine output (ml): 0 Pathology: other (lumbar wound cultures x3) Condition: stable Disposition: PACU Indications for Procedure: Mr. Wall is presenting for evaluation of lumbar wound delayed healing. It was my pleasure to have seen and examined Mr. Wall. In our visit today we have had a chance to go over subjective complaints, physical examination findings and treatments including the natural course history without intervention and various interventional options. On physical exam, Mr. Wall demonstrates no sign of any infection, small opening and slight serous drainage to the top left incision site, EEE, edema, or ecchymosis. No fevers or chills.. I have explained to the patient that as their condition progresses it will cause further neurological deficits and eventual paralysis. Based on the patients imaging, physical exam, and the rapid progression and disabling nature of their symptoms, at this time I recommend surgery in the form or a: Lumbar revision Irrigation and Debridement with Incision and Drainage of lumbar surgical wound. I discussed the risk and benefits of this procedure at length with Mr. Wall. The patient agreed to considered pursuing the procedure abovementioned. Prior to surgery, she should follow up with her PCP (Cardio, ID, IM etc) for clearance. Questions were invited and answered, and the patient wishes to proceed as outlined below. Currently, I am recommendin.Lumbar revision Irrigation and Debridement with Incision and Drainage of lumbar surgical wound Description of Procedure: Patient was brought to the pre operative area and evaluated by anesthesia and pre operative staff. We discussed again the risks and benefits of the procedure as outlined in risk review. Anesthesia saw and evaluated patient and he was deemed fit for surgery. 2g of ancef was given IVPB. All pre op protocols followed. Consent was signed as well as H&P update. Pt was marked and willing to proceed with surgery. Patient was brought to the operative suit by the department of anesthesia. GETA was performed by dept of anesthesia. Once adequate anesthesia was obtained pt was transferred very carefully to prone Trios table with arms up and out and well padded. Special attention was payed to the pts bony prominences and joints and all were padded accordingly. Genitalia were padded and were free. Once in position we confirmed ventilation and lines were appropriate. We then identified surgical area and outlined it with 1010 drapes. OR briefing was performed and parties in agreement. The patient was then prepped and draped in a normal sterile fashion. Time out performed and all parties in agreement with procedure to be performed. The previous incision was inspected. The cranial most and left hand incision had a small granuloma looking materal in center. The incision was opened with a 10 blade and the edges freshened. The tract was then excised using skin knife. There were PDS suture just below this that was causing the scar tissue and abscess like material but no purulence or phlegmon was encountered. This was likely a suture granuloma. We excised this, the tract and the sutures that were there. We freshened the edges. We then irrigated with 3L ancef solution, 3L gentamycin solution and 3L NSS as well as Irricept irrigation. A curette was used to scrape out any further material of skin, soft tissue and muscle. There wound was inspected there was no tract deep to hardware. We then closed the wound with 0 vicryl and 2-0 vicryl. 2-0 nylon was used in the skin and the wound edges approximated very well. The wound was then cleaned and dressed with sterile bandage. The pt was then transferred back to his hospital bed atraumatically and awakend and extubated by the department of anesthesia. He was then transferred to the PACU in stable condition having tolerated the procedure w/o complications.
[2022-05-11] MEDS ORDERED: HYDROmorphone 0.5 MG/0.5 ML SYRINGE IVP ONE (10:29)
[2022-05-11] MEDS ORDERED: HYDROcodone/APAP 7.5-325MG 1 EACH TAB ONE (11:11)
[2022-05-11] MEDS ORDERED: HYDROcodone/APAP 7.5-325MG 1 EACH TAB PO ONE (11:13)
[2022-05-11] MEDS ORDERED: ACETAMINOPHEN TAB 325 MG TAB PO SCH (12:00)
[2022-05-11 12:04] VITALS: RESP 16
[2022-05-11 12:18] VITALS: BP 119/78; PULSE 75
== END 2022-05-11 12:34 | disposition home or self-care (01) ==
LOC: OR 06:51
PROVIDERS: ATTEND Orthopaedic Surgery
DX: T81.89XA Other complications of procedures, not elsewhere classified, initial encounter (principal); I10 Essential (primary) hypertension; F32.A Depression, unspecified; Z86.73 Personal history of transient ischemic attack (TIA), and cerebral infarction without residual deficits; Z98.890 Other specified postprocedural states; Z79.899 Other long term (current) drug therapy; Z79.1 Long term (current) use of non-steroidal anti-inflammatories (NSAID)
CPT/HCPCS: 87070; 87205; 87075; 12021; J2250; J0330; J1580; J1100; J0690 ×2; J2405; J3010; J1170 ×2; J2704; J2001